=== PATIENT | female | born 1965 | race American Indian/Alaskan Native ===

== ENCOUNTER 2020-07-13 16:13 | Inpatient (IN) | payer MEDICAID, OTHER ==
--- NOTE | 2020-07-13 17:17 | EDM.PDOC ---
ED HPI GENERAL MEDICAL PROBLEM - General Chief Complaint: Diabetic Complaint Stated Complaint: sent from [facility] Time Seen by Provider: 07/13/20 17:17 Source of Information: Reports: Patient, EMS, Old Records, RN, RN Notes Reviewed History Limitations: Reports: No Limitations - History of Present Illness INITIAL COMMENTS - FREE TEXT/NARRATIVE: Pt sent from [facility] by ambulance with report of nausea, vomiting, diarrhea, vaginal yeast-like discharge, and sore mouth. In clinic pt was found to have a blood sugar in the 600's with no prior history of diabetes. Pt also reports having a cough for several days, but tested negative for COVID in clinic today. She denies fever, chills, or chest pain. Onset: Gradual Location: Reports: Generalized Severity: Severe Improves with: Reports: None Worsens with: Reports: None Associated Symptoms: Reports: No Other Symptoms Left Lower Back Pain Score (Numeric/FACES): 8 - Related Data Allergies Allergy/AdvReac Type Severity Reaction Status Date / Time No Known Allergies Allergy Verified 07/13/20 17:22 Home Meds: Home Meds Acetaminophen [Tylenol] 325 mg PO Q4H PRN 07/13/20 [History] Past Medical History - Past Health History Medical/Surgical History: Denies Medical/Surgical History Social & Family History - Family History Family Medical History: Noncontributory - Alcohol Use Alcohol Use History: No - Recreational Drug Use Recreational Drug Use: No - Living Situation & Occupation Living situation: Reports: with Family ED ROS GENERAL - Review of Systems Review Of Systems: Comprehensive ROS is negative, except as noted in HPI. ED EXAM GENERAL NO PERIP PULSE - Physical Exam Exam: See Below Exam Limited By: No Limitations General Appearance: Alert, No Apparent Distress, Other (Ill but non-toxic appearing) Eye Exam: Bilateral Eye: Normal Inspection Nose: Normal Inspection, Normal Mucosa, No Blood Throat/Mouth: Normal Lips, Normal Voice, No Airway Compromise, Other (Very dry oral mucosa. Dentures. White plaques consistent with oral candidiasis.) Head: Atraumatic, Normocephalic Neck: Normal Inspection, Supple, Non-Tender, Full Range of Motion Respiratory/Chest: No Respiratory Distress, Lungs Clear, Normal Breath Sounds, No Accessory Muscle Use, Chest Non-Tender, Other (Dry cough) Cardiovascular: Normal Peripheral Pulses, Regular Rate, Rhythm, No Edema GI/Abdominal: Normal Bowel Sounds, Soft, No Organomegaly, No Distention, Tender (Generalized). No: Guarding, Rigid, Rebound (Female) Exam: Deferred Rectal (Female) Exam: Deferred Back Exam: Full Range of Motion, CVA Tenderness (L), CVA Tenderness (R) Extremities: Normal Inspection, Normal Range of Motion, Non-Tender, Normal Capillary Refill, No Pedal Edema Neurological: Alert, Oriented, CN II-XII Intact, Normal Cognition, Normal Gait, No Motor/Sensory Deficits Psychiatric: Normal Affect, Normal Mood Skin Exam: Warm, Dry, Intact, Normal Color, No Rash EKG INTERPRETATION EKG Date: 07/13/20 Time: 17:27 Rhythm: Other (SR) Rate (Beats/Min): 87 Elton: LAD-Left Elton Deviation P-Wave: Present QRS: Other (LVH) ST-T: Normal QT: Prolonged (borderline) Comparison: NA - No Prior EKG Course - Vital Signs Last Recorded V/S: Last Vital Signs Temp 97.1 F 07/13/20 19:05 Pulse 88 07/13/20 19:05 Resp 16 07/13/20 19:05 BP 138/82 07/13/20 19:05 Pulse Ox 100 07/13/20 19:05 - Orders/Labs/Meds Orders: Active Orders 24 hr Category Date Time Status Admission Diagnosis [ADT] Stat ADT 07/13/20 18:38 Ordered Admission Status [Patient Status] [ADT] Routine ADT 07/13/20 18:38 Active Blood Glucose Check, Bedside [RC] Q4HR Care 07/13/20 17:18 Active EKG 12 Lead [EKG Documentation Completion] [RC] STAT Care 07/13/20 17:18 Active Peripheral IV Care [RC] . DIRECTED Care 07/13/20 17:19 Active CULTURE BLOOD [BC] Stat Lab 07/13/20 17:40 Received CULTURE BLOOD [BC] Stat Lab 07/13/20 18:05 Results CULTURE URINE [RM] Stat Lab 07/13/20 18:08 Received Sodium Chloride 0.9% [Saline Flush] Med 07/13/20 17:18 Active 10 ml FLUSH ASDIRECTED PRN Blood Culture x2 Reflex Set [OM.PC] Stat Oth 07/13/20 17:18 Ordered Peripheral IV Insertion Adult [OM.PC] Stat Oth 07/13/20 17:18 Ordered Medication Orders Acetaminophen (Tylenol) 650 mg PO Q4H PRN PRN Reason: Pain (Mild 1-3)/fever Dextrose/Water (Dextrose 50% In Water) 25 ml IVPUSH Q1H PRN PRN Reason: blood sugar <70 Docusate Sodium (Colace) 100 mg PO BID PRN PRN Reason: Constipation Fentanyl (Sublimaze) 25 mcg IVPUSH Q2H PRN PRN Reason: severe pain Fluconazole (Diflucan) 100 mg PO DAILY [facility] Heparin Sodium (Porcine) (Heparin Sodium) 5,000 units SUBCUT Q8HR [facility] Dextrose/Sodium Chloride (Dextrose 5%-Normal Saline) 1,000 mls @ 150 mls/hr IV ASDIRECTED [facility] Ceftriaxone Sodium 1 gm/ (Sodium Chloride) 50 mls @ 100 mls/hr IV Q24H [facility] Ibuprofen (Motrin) 400 mg PO Q6H PRN PRN Reason: mod pain Insulin Glargine (Lantus) 10 unit SUBCUT BEDTIME [facility] Last Admin: 07/13/20 19:46 Dose: 10 units Documented by: DICKSON Insulin Human Lispro (Humalog) 0 unit SUBCUT Q4H PRN; Protocol PRN Reason: per protocol Metoclopramide HCl (Reglan) 10 mg IVPUSH Q6H PRN PRN Reason: Nausea Potassium Chloride (Klor-Con 10) 40 meq PO Q6H [facility] Stop: 07/14/20 02:01 Sodium Chloride (Saline Flush) 10 ml FLUSH ASDIRECTED PRN PRN Reason: Keep Vein Open Zolpidem Tartrate (Ambien) 5 mg PO BEDTIME PRN PRN Reason: Sleep Labs: Laboratory Tests 07/13/20 07/13/20 07/13/20 Range/Units 17:19 17:40 17:40 WBC 8.4 (5.0-10.0) 10^3/uL RBC 5.19 (4.2-5.4) 10^6/uL Hgb 15.8 (12.0-16.0) g/dL Hct 44.2 (37.0-47.0) % MCV 85.2 (80-100) fL MCH 30.4 (27.0-34.0) pg MCHC 35.7 H (33.0-35.0) g/dL Plt Count 249 (150-450) 10^3/uL Neut % (Auto) 75.1 (42.2-75.2) % Lymph % (Auto) 19.1 L (20.5-50.1) % Bradley % (Auto) 5.0 (2-8) % Eos % (Auto) 0.6 L (1.0-3.0) % Baso % (Auto) 0.2 (0.0-1.0) % ABG pH 7.36 (7.35-7.45) ABG pCO2 26 L (35-45) mmHg ABG pO2 135 H (70-100) mmHg ABG HCO3 14.5 L (22-26) mmol/L ABG O2 Saturation 98 (95-100) % ABG Base Excess -9 L ((-2)-(+3)) mmol/L Leon Test Performed O2 Delivery Device Room air Sodium 131 L (136-145) mmol/L Potassium 3.1 L (3.5-5.1) mmol/L Chloride 96 L (98-107) mmol/L Carbon Dioxide 21 (21-32) mmol/L Anion Gap 17.1 H (7-13) mEq/L BUN 11 (7-18) mg/dL Creatinine 1.01 (0.55-1.02) mg/dL Est Cr Clr Drug Dosing 52.67 mL/min Estimated GFR (MDRD) 57 BUN/Creatinine Ratio 10.9 (No establ ref range) Glucose 539 H* (74-99) mg/dL POC Glucose (70-105) mg/dl Lactic Acid (0.4-2.0) mmol/L Calcium 8.3 L (8.5-10.1) mg/dL Total Bilirubin 0.3 (0.2-1.0) mg/dL AST 13 L (15-37) U/L ALT 22 (14-59) U/L Alkaline Phosphatase 138 H (46-116) U/L Troponin I < 0.017 (0.000-0.056) ng/mL Total Protein 6.4 (6.4-8.2) g/dL Albumin 2.9 L (3.4-5.0) g/dL Globulin 3.5 Albumin/Globulin Ratio 0.83 Amylase 28 (25-115) U/L Lipase 300 (73-393) U/L Urine Color (YELLOW) Urine Appearance (CLEAR) Urine pH (5.0-9.0) Ur Specific [place] (1.005-1.030) Urine Protein (NEGATIVE) Urine Glucose (UA) (NEGATIVE) Urine Ketones (NEGATIVE) Urine Occult Blood (NEGATIVE) Urine Nitrite (NEGATIVE) Urine Bilirubin (NEGATIVE) Urine Urobilinogen (0.2-1.0) mg/dL Ur Leukocyte Esterase (NEGATIVE) Urine RBC /HPF Urine WBC (0-5/HPF) /HPF Ur Epithelial Cells (NOT SEEN) /HPF Urine Bacteria (0-FEW/HPF) /HPF Urine Opiates Screen (NEGATIVE) Ur Oxycodone Screen (NEGATIVE) Urine Methadone Screen (NEGATIVE) Ur Barbiturates Screen (NEGATIVE) U Tricyclic Antidepress (NEGATIVE) Ur Phencyclidine Scrn (NEGATIVE) Ur Amphetamine Screen (NEGATIVE) U Methamphetamines Scrn (NEGATIVE) Urine MDMA Screen (NEGATIVE) U Benzodiazepines Scrn (NEGATIVE) Urine Cocaine Screen (NEGATIVE) U Marijuana (THC) Screen (NEGATIVE) Ethyl Alcohol < 3 (0) mg/dL Ketones Small-20 mg/dl 07/13/20 07/13/20 07/13/20 Range/Units 17:40 18:08 18:08 WBC (5.0-10.0) 10^3/uL RBC (4.2-5.4) 10^6/uL Hgb (12.0-16.0) g/dL Hct (37.0-47.0) % MCV (80-100) fL MCH (27.0-34.0) pg MCHC (33.0-35.0) g/dL Plt Count (150-450) 10^3/uL Neut % (Auto) (42.2-75.2) % Lymph % (Auto) (20.5-50.1) % Bradley % (Auto) (2-8) % Eos % (Auto) (1.0-3.0) % Baso % (Auto) (0.0-1.0) % ABG pH (7.35-7.45) ABG pCO2 (35-45) mmHg ABG pO2 (70-100) mmHg ABG HCO3 (22-26) mmol/L ABG O2 Saturation (95-100) % ABG Base Excess ((-2)-(+3)) mmol/L Leon Test O2 Delivery Device Sodium (136-145) mmol/L Potassium (3.5-5.1) mmol/L Chloride (98-107) mmol/L Carbon Dioxide (21-32) mmol/L Anion Gap (7-13) mEq/L BUN (7-18) mg/dL Creatinine (0.55-1.02) mg/dL Est Cr Clr Drug Dosing mL/min Estimated GFR (MDRD) BUN/Creatinine Ratio (No establ ref range) Glucose (74-99) mg/dL POC Glucose (70-105) mg/dl Lactic Acid 1.5 (0.4-2.0) mmol/L Calcium (8.5-10.1) mg/dL Total Bilirubin (0.2-1.0) mg/dL AST (15-37) U/L ALT (14-59) U/L Alkaline Phosphatase (46-116) U/L Troponin I (0.000-0.056) ng/mL Total Protein (6.4-8.2) g/dL Albumin (3.4-5.0) g/dL Globulin Albumin/Globulin Ratio Amylase (25-115) U/L Lipase (73-393) U/L Urine Color Yellow (YELLOW) Urine Appearance Slightly cloudy (CLEAR) Urine pH 7.0 (5.0-9.0) Ur Specific [place] 1.015 (1.005-1.030) Urine Protein Negative (NEGATIVE) Urine Glucose (UA) 500 H (NEGATIVE) Urine Ketones 40 H (NEGATIVE) Urine Occult Blood Trace-intact H (NEGATIVE) Urine Nitrite Negative (NEGATIVE) Urine Bilirubin Negative (NEGATIVE) Urine Urobilinogen 0.2 (0.2-1.0) mg/dL Ur Leukocyte Esterase Trace H (NEGATIVE) Urine RBC 0-5 /HPF Urine WBC Semi-packed H (0-5/HPF) /HPF Ur Epithelial Cells Moderate H (NOT SEEN) /HPF Urine Bacteria Many H (0-FEW/HPF) /HPF Urine Opiates Screen Negative (NEGATIVE) Ur Oxycodone Screen Negative (NEGATIVE) Urine Methadone Screen Negative (NEGATIVE) Ur Barbiturates Screen Negative (NEGATIVE) U Tricyclic Antidepress Negative (NEGATIVE) Ur Phencyclidine Scrn Negative (NEGATIVE) Ur Amphetamine Screen Negative (NEGATIVE) U Methamphetamines Scrn Positive H (NEGATIVE) Urine MDMA Screen Negative (NEGATIVE) U Benzodiazepines Scrn Negative (NEGATIVE) Urine Cocaine Screen Negative (NEGATIVE) U Marijuana (THC) Screen Negative (NEGATIVE) Ethyl Alcohol (0) mg/dL Ketones 07/13/20 Range/Units 19:05 WBC (5.0-10.0) 10^3/uL RBC (4.2-5.4) 10^6/uL Hgb (12.0-16.0) g/dL Hct (37.0-47.0) % MCV (80-100) fL MCH (27.0-34.0) pg MCHC (33.0-35.0) g/dL Plt Count (150-450) 10^3/uL Neut % (Auto) (42.2-75.2) % Lymph % (Auto) (20.5-50.1) % Bradley % (Auto) (2-8) % Eos % (Auto) (1.0-3.0) % Baso % (Auto) (0.0-1.0) % ABG pH (7.35-7.45) ABG pCO2 (35-45) mmHg ABG pO2 (70-100) mmHg ABG HCO3 (22-26) mmol/L ABG O2 Saturation (95-100) % ABG Base Excess ((-2)-(+3)) mmol/L Leon Test O2 Delivery Device Sodium (136-145) mmol/L Potassium (3.5-5.1) mmol/L Chloride (98-107) mmol/L Carbon Dioxide (21-32) mmol/L Anion Gap (7-13) mEq/L BUN (7-18) mg/dL Creatinine (0.55-1.02) mg/dL Est Cr Clr Drug Dosing mL/min Estimated GFR (MDRD) BUN/Creatinine Ratio (No establ ref range) Glucose (74-99) mg/dL POC Glucose 250 H (70-105) mg/dl Lactic Acid (0.4-2.0) mmol/L Calcium (8.5-10.1) mg/dL Total Bilirubin (0.2-1.0) mg/dL AST (15-37) U/L ALT (14-59) U/L Alkaline Phosphatase (46-116) U/L Troponin I (0.000-0.056) ng/mL Total Protein (6.4-8.2) g/dL Albumin (3.4-5.0) g/dL Globulin Albumin/Globulin Ratio Amylase (25-115) U/L Lipase (73-393) U/L Urine Color (YELLOW) Urine Appearance (CLEAR) Urine pH (5.0-9.0) Ur Specific [place] (1.005-1.030) Urine Protein (NEGATIVE) Urine Glucose (UA) (NEGATIVE) Urine Ketones (NEGATIVE) Urine Occult Blood (NEGATIVE) Urine Nitrite (NEGATIVE) Urine Bilirubin (NEGATIVE) Urine Urobilinogen (0.2-1.0) mg/dL Ur Leukocyte Esterase (NEGATIVE) Urine RBC /HPF Urine WBC (0-5/HPF) /HPF Ur Epithelial Cells (NOT SEEN) /HPF Urine Bacteria (0-FEW/HPF) /HPF Urine Opiates Screen (NEGATIVE) Ur Oxycodone Screen (NEGATIVE) Urine Methadone Screen (NEGATIVE) Ur Barbiturates Screen (NEGATIVE) U Tricyclic Antidepress (NEGATIVE) Ur Phencyclidine Scrn (NEGATIVE) Ur Amphetamine Screen (NEGATIVE) U Methamphetamines Scrn (NEGATIVE) Urine MDMA Screen (NEGATIVE) U Benzodiazepines Scrn (NEGATIVE) Urine Cocaine Screen (NEGATIVE) U Marijuana (THC) Screen (NEGATIVE) Ethyl Alcohol (0) mg/dL Ketones Meds: Medications Generic Name Dose Route Start Last Admin Trade Name Oleq PRN Reason Stop Dose Admin Acetaminophen 650 mg 07/13/20 19:26 Tylenol PO Q4H PRN Pain (Mild 1-3)/fever Dextrose/Water 25 ml 07/13/20 19:25 Dextrose 50% In Water IVPUSH Q1H PRN blood sugar <70 Docusate Sodium 100 mg 07/13/20 19:26 Colace PO BID PRN Constipation Fentanyl 25 mcg 07/13/20 19:40 Sublimaze IVPUSH Q2H PRN severe pain Fluconazole 100 mg 07/14/20 09:00 Diflucan PO DAILY [facility] Heparin Sodium (Porcine) 5,000 units 07/13/20 22:00 Heparin Sodium SUBCUT Q8HR [facility] Dextrose/Sodium Chloride 1,000 mls @ 150 mls/hr 07/13/20 19:30 Dextrose 5%-Normal Saline IV ASDIRECTED [facility] Ceftriaxone Sodium 1 gm/ 50 mls @ 100 mls/hr 07/13/20 20:00 Sodium Chloride IV Q24H JCARLOS Ibuprofen 400 mg 07/13/20 19:41 Motrin PO Q6H PRN mod pain Insulin Glargine 10 unit 07/13/20 21:00 07/13/20 19:46 Lantus SUBCUT 10 units BEDTIME JCARLOS Administration Insulin Human Lispro 0 unit 07/13/20 19:25 Humalog SUBCUT Q4H PRN per protocol Protocol Metoclopramide HCl 10 mg 07/13/20 19:31 Reglan IVPUSH Q6H PRN Nausea Potassium Chloride 40 meq 07/13/20 20:00 Klor-Con 10 PO 07/14/20 02:01 Q6H JCARLOS Sodium Chloride 10 ml 07/13/20 17:18 Saline Flush FLUSH ASDIRECTED PRN Keep Vein Open Zolpidem Tartrate 5 mg 07/13/20 19:26 Ambien PO BEDTIME PRN Sleep Discontinued Medications Generic Name Dose Route Start Last Admin Trade Name Freq PRN Reason Stop Dose Admin Sodium Chloride 1,000 mls @ 999 mls/hr 07/13/20 17:20 07/13/20 17:30 Normal Saline IV 07/13/20 18:20 999 mls/hr .BOLUS ONE Administration Insulin Human Regular 100 unit 100 mls @ 6.346 mls/hr 07/13/20 17:30 07/13/20 19:18 / Sodium Chloride IV 0 units/kg/hr TITRATE JCARLOS 0 mls/hr Titration Protocol 0.1 UNITS/KG/HR Potassium Chloride/Sodium Chloride 1,000 mls @ 250 mls/hr 07/13/20 18:45 Normal Saline With 40 Meq Kcl IV ASDIRECTED [facility] Insulin Human Regular 8 unit 07/13/20 17:20 07/13/20 17:32 Humulin R IV 07/13/20 17:21 8 units ONETIME ONE Administration Ondansetron HCl 4 mg 07/13/20 17:20 07/13/20 17:30 Zofran IV 07/13/20 17:21 4 mg ONETIME ONE Administration Ondansetron HCl 4 mg 07/13/20 19:26 Zofran Odt PO Q6H PRN nausea, able to take PO Ondansetron HCl 4 mg 07/13/20 19:26 Zofran IVPUSH Q4H PRN Nausea/Vomiting - Radiology Interpretation Free Text/Narrative:: [facility] Final Radiology Report Call: [phone] assistance Online chat: [email or web address] Name: MARILEE MEDRANO Age: 55Years F Date: 07/13/2020 SSN: -- : [id number] Study: CR CHEST 1V FRONTAL Requesting Physician: SHIRA WHYTE Images: 1 Addl Studies: Provided Clinical History: cough Contrast: Contrast Medium: Contrast Amount: Contrast Method: CONFIDENTIALITY STATEMENT This report is intended only for use by the referring physician, and only in accordance with law. If you received this in error, call [phone]. Page 1 of 1 PROCEDURE INFORMATION: Exam: XR Chest, 1 View Exam date and time: 07/13/2020 5:56 PM Age: 55 years old Clinical indication: Cough; Patient HX: Blood sugar>600, dka TECHNIQUE: Imaging protocol: XR of the chest Views: 1 view. COMPARISON: No relevant prior studies available. FINDINGS: Lungs: Unremarkable. No consolidation. Pleural space: Unremarkable. No pleural effusion. No pneumothorax. Heart/Mediastinum: Unremarkable. No cardiomegaly. Bones/joints: Unremarkable. IMPRESSION: No acute findings. Thank you for allowing us to participate in the care of your patient. Dictated and Authenticated by: Adria Prajapati MD 07/13/2020 6:03 PM Central Time ([place] & [place]) Departure - Departure Time of Disposition: 18:47 (admitted to Dr. Thornton) Disposition: Admitted As Inpatient 67 Condition: Fair, Serious Clinical Impression: New onset type 1 diabetes mellitus, uncontrolled, Oral candidiasis DKA (diabetic ketoacidoses) Qualifiers: Diabetes mellitus type: type 2 Diabetes mellitus complication detail: without coma Qualified Code(s): E11.10 - Type 2 diabetes mellitus with ketoacidosis without coma - Discharge Information *PRESCRIPTION DRUG MONITORING PROGRAM REVIEWED*: Not Applicable *COPY OF PRESCRIPTION DRUG MONITORING REPORT IN PATIENT [place]: Not Applicable Sepsis Event Note (ED) - Focused Exam Vital Signs: Vital Signs Temp Pulse Pulse Resp BP Pulse Ox 07/13/20 19:05 97.1 F 88 16 138/82 100 07/13/20 17:39 97.1 F 87 16 130/75 99 - My Orders Last 24 Hours: My Active Orders 07/13/20 17:18 Blood Glucose Check, Bedside [RC] Q4HR EKG 12 Lead [EKG Documentation Completion] [RC] STAT Sodium Chloride 0.9% [Saline Flush] 10 ml FLUSH ASDIRECTED PRN Blood Culture x2 Reflex Set [OM.PC] Stat Peripheral IV Insertion Adult [OM.PC] Stat 07/13/20 17:19 Peripheral IV Care [RC] . DIRECTED 07/13/20 17:40 CULTURE BLOOD [BC] Stat 07/13/20 18:05 CULTURE BLOOD [BC] Stat 07/13/20 18:08 CULTURE URINE [RM] Stat 07/13/20 18:38 Admission Diagnosis [ADT] Stat Admission Status [Patient Status] [ADT] Routine - Assessment/Plan Last 24 Hours: My Active Orders 07/13/20 17:18 Blood Glucose Check, Bedside [RC] Q4HR EKG 12 Lead [EKG Documentation Completion] [RC] STAT Sodium Chloride 0.9% [Saline Flush] 10 ml FLUSH ASDIRECTED PRN Blood Culture x2 Reflex Set [OM.PC] Stat Peripheral IV Insertion Adult [OM.PC] Stat 07/13/20 17:19 Peripheral IV Care [RC] . DIRECTED 07/13/20 17:40 CULTURE BLOOD [BC] Stat 07/13/20 18:05 CULTURE BLOOD [BC] Stat 07/13/20 18:08 CULTURE URINE [RM] Stat 07/13/20 18:38 Admission Diagnosis [ADT] Stat Admission Status [Patient Status] [ADT] Routine
[2020-07-13] MEDS ORDERED: Sodium Chloride 0.9% 1,000 ML IV ONE (17:20)
[2020-07-13] MEDS ORDERED: Ondansetron 4 MG/2 ML SDV IV ONE (17:20)
[2020-07-13] MEDS ORDERED: Insulin Regular, Human 100 Units/ML 3 ML Vial IV ONE (17:20)
[2020-07-13 17:22] LABS: BASE EXCESS ARTERIAL -9 mmol/L ((-2)-(+3)); BICARBONATE,ARTERIAL 14.5 mmol/L (22-26); O2 DELIVERY DEVICE ROOM AIR; O2 SATURATION ARTERIAL 98 % (95-100); PCO2 ARTERIAL 26 mmHg (35-45); PO2 ARTERIAL 135 mmHg (70-100)
[2020-07-13 17:23] LABS: ALLEN TEST PERFORMED
--- NOTE | 2020-07-13 18:03 | CR ---
PROCEDURE INFORMATION: Exam: XR Chest, 1 View Exam date and time: 07/13/2020 5:56 PM Age: 55 years old Clinical indication: Cough; Patient HX: Blood sugar>600, dka TECHNIQUE: Imaging protocol: XR of the chest Views: 1 view. COMPARISON: No relevant prior studies available. FINDINGS: Lungs: Unremarkable. No consolidation. Pleural space: Unremarkable. No pleural effusion. No pneumothorax. Heart/Mediastinum: Unremarkable. No cardiomegaly. Bones/joints: Unremarkable. IMPRESSION: No acute findings.
[2020-07-13 18:26] LABS: ANION GAP 17.1 mEq/L (7-13); CHLORIDE,CL 96 mmol/L (98-107); SODIUM,NA 131 mmol/L (136-145)
[2020-07-13] MEDS ORDERED: Sodium Chloride 0.9% with KCl 1,000 ML IV SCH (18:45)
[2020-07-13] MEDS ORDERED: 50% Dextrose in Water 50 ML Syringe IVPUSH PRN (19:25)
[2020-07-13] MEDS ORDERED: Ondansetron 4 MG Tab.DIS PO PRN (19:26)
[2020-07-13] MEDS ORDERED: Ondansetron 4 MG/2 ML SDV IVPUSH PRN (19:26)
[2020-07-13] MEDS ORDERED: Docusate Sodium 100 MG Cap PO PRN (19:26)
[2020-07-13] MEDS ORDERED: Metoclopramide 10 MG/2 ML SDV IVPUSH PRN (19:31)
[2020-07-13] MEDS: Insulin Glarg,Human.Rec.Analog 100 Unit/ML SUBCUT SCH ×2 (19:46→22:05)
--- NOTE | 2020-07-13 19:51 | PCM.HP ---
H&P History of Present Illness - General Date of Service: 07/13/20 Admit Problem/Dx: Admission Diagnosis/Problem Admission Diagnosis/Problem Diabetic ketoacidosis Source of Information: Patient - History of Present Illness Initial Comments - Free Text/Narative: 55-year-old with no significant chronic medical history. Had with nausea,back and abdominal pain, foul-smelling vaginal drainage, dry mouth. Has been drinking a lot and urinating frequently. Still always feeling thirsty. symptoms have been present for days. Worsening. weak when getting up, short of breath. Dry cough. No fever. denies alcohol use, drug use. Left Lower Back Pain Score (Numeric/FACES): 8 - Related Data Allergies/Adverse Reactions: Allergies Allergy/AdvReac Type Severity Reaction Status Date / Time No Known Allergies Allergy Verified 07/13/20 17:22 Home Medications: Home Meds Acetaminophen [Tylenol] 325 mg PO Q4H PRN 07/13/20 [History] Past Medical History - Past Health History Medical/Surgical History: Denies Medical/Surgical History Social & Family History - Family History Family Medical History: Noncontributory - Tobacco Use Smoking Status *Q: Current Every Day Smoker Years of Tobacco use: 8 Packs/Tins Daily: 0.5 - Caffeine Use Caffeine Use: Reports: None - Recreational Drug Use Recreational Drug Use: No - Living Situation & Occupation Living situation: Reports: with Family H&P Review of Systems - Review of Systems: Review Of Systems: See Below General: Reports: Malaise, Weakness Pulmonary: Reports: Shortness of Breath Cardiovascular: Denies: Chest Pain, Palpitations, Edema Gastrointestinal: Reports: Abdominal Pain, Nausea, Other (One-time loose stool). Denies: Black Stool Genitourinary: Reports: Dysuria Musculoskeletal: Reports: Back Pain Psychiatric: Denies: Confusion Neurological: Reports: Dizziness Exam - Exam Exam: See Below - Vital Signs Vital Signs: Last Vital Signs Temp 97.1 F 07/13/20 19:05 Pulse 88 07/13/20 19:05 Resp 16 07/13/20 19:05 BP 138/82 07/13/20 19:05 Pulse Ox 100 07/13/20 19:05 Weight: 139 lb 14.4 oz - Exam Quality Assessment: No: Supplemental Oxygen General: Alert, Oriented HEENT: Other (dry mouth) Neck: Supple Lungs: Clear to Auscultation, Normal Respiratory Effort Cardiovascular: Regular Rate, Regular Rhythm GI/Abdominal Exam: Normal Bowel Sounds, Soft, Non-Tender Extremities: No Pedal Edema - Patient Data Lab Results Last 24 hrs: Laboratory Results - last 24 hr 07/13/20 07/13/20 07/13/20 Range/Units 17:19 17:40 17:40 WBC 8.4 (5.0-10.0) 10^3/uL RBC 5.19 (4.2-5.4) 10^6/uL Hgb 15.8 (12.0-16.0) g/dL Hct 44.2 (37.0-47.0) % MCV 85.2 (80-100) fL MCH 30.4 (27.0-34.0) pg MCHC 35.7 H (33.0-35.0) g/dL Plt Count 249 (150-450) 10^3/uL Neut % (Auto) 75.1 (42.2-75.2) % Lymph % (Auto) 19.1 L (20.5-50.1) % Prentiss % (Auto) 5.0 (2-8) % Eos % (Auto) 0.6 L (1.0-3.0) % Baso % (Auto) 0.2 (0.0-1.0) % ABG pH 7.36 (7.35-7.45) ABG pCO2 26 L (35-45) mmHg ABG pO2 135 H (70-100) mmHg ABG HCO3 14.5 L (22-26) mmol/L ABG O2 Saturation 98 (95-100) % ABG Base Excess -9 L ((-2)-(+3)) mmol/L Leon Test Performed O2 Delivery Device Room air Sodium 131 L (136-145) mmol/L Potassium 3.1 L (3.5-5.1) mmol/L Chloride 96 L (98-107) mmol/L Carbon Dioxide 21 (21-32) mmol/L Anion Gap 17.1 H (7-13) mEq/L BUN 11 (7-18) mg/dL Creatinine 1.01 (0.55-1.02) mg/dL Est Cr Clr Drug Dosing 52.67 mL/min Estimated GFR (MDRD) 57 BUN/Creatinine Ratio 10.9 (No establ ref range) Glucose 539 H* (74-99) mg/dL POC Glucose (70-105) mg/dl Lactic Acid (0.4-2.0) mmol/L Calcium 8.3 L (8.5-10.1) mg/dL Total Bilirubin 0.3 (0.2-1.0) mg/dL AST 13 L (15-37) U/L ALT 22 (14-59) U/L Alkaline Phosphatase 138 H (46-116) U/L Troponin I < 0.017 (0.000-0.056) ng/mL Total Protein 6.4 (6.4-8.2) g/dL Albumin 2.9 L (3.4-5.0) g/dL Globulin 3.5 Albumin/Globulin Ratio 0.83 Amylase 28 (25-115) U/L Lipase 300 (73-393) U/L Urine Color (YELLOW) Urine Appearance (CLEAR) Urine pH (5.0-9.0) Ur Specific Turner (1.005-1.030) Urine Protein (NEGATIVE) Urine Glucose (UA) (NEGATIVE) Urine Ketones (NEGATIVE) Urine Occult Blood (NEGATIVE) Urine Nitrite (NEGATIVE) Urine Bilirubin (NEGATIVE) Urine Urobilinogen (0.2-1.0) mg/dL Ur Leukocyte Esterase (NEGATIVE) Urine RBC /HPF Urine WBC (0-5/HPF) /HPF Ur Epithelial Cells (NOT SEEN) /HPF Urine Bacteria (0-FEW/HPF) /HPF Urine Opiates Screen (NEGATIVE) Ur Oxycodone Screen (NEGATIVE) Urine Methadone Screen (NEGATIVE) Ur Barbiturates Screen (NEGATIVE) U Tricyclic Antidepress (NEGATIVE) Ur Phencyclidine Scrn (NEGATIVE) Ur Amphetamine Screen (NEGATIVE) U Methamphetamines Scrn (NEGATIVE) Urine MDMA Screen (NEGATIVE) U Benzodiazepines Scrn (NEGATIVE) Urine Cocaine Screen (NEGATIVE) U Marijuana (THC) Screen (NEGATIVE) Ethyl Alcohol < 3 (0) mg/dL Ketones Small-20 mg/dl 07/13/20 07/13/20 07/13/20 Range/Units 17:40 18:08 18:08 WBC (5.0-10.0) 10^3/uL RBC (4.2-5.4) 10^6/uL Hgb (12.0-16.0) g/dL Hct (37.0-47.0) % MCV (80-100) fL MCH (27.0-34.0) pg MCHC (33.0-35.0) g/dL Plt Count (150-450) 10^3/uL Neut % (Auto) (42.2-75.2) % Lymph % (Auto) (20.5-50.1) % Prentiss % (Auto) (2-8) % Eos % (Auto) (1.0-3.0) % Baso % (Auto) (0.0-1.0) % ABG pH (7.35-7.45) ABG pCO2 (35-45) mmHg ABG pO2 (70-100) mmHg ABG HCO3 (22-26) mmol/L ABG O2 Saturation (95-100) % ABG Base Excess ((-2)-(+3)) mmol/L Leon Test O2 Delivery Device Sodium (136-145) mmol/L Potassium (3.5-5.1) mmol/L Chloride (98-107) mmol/L Carbon Dioxide (21-32) mmol/L Anion Gap (7-13) mEq/L BUN (7-18) mg/dL Creatinine (0.55-1.02) mg/dL Est Cr Clr Drug Dosing mL/min Estimated GFR (MDRD) BUN/Creatinine Ratio (No establ ref range) Glucose (74-99) mg/dL POC Glucose (70-105) mg/dl Lactic Acid 1.5 (0.4-2.0) mmol/L Calcium (8.5-10.1) mg/dL Total Bilirubin (0.2-1.0) mg/dL AST (15-37) U/L ALT (14-59) U/L Alkaline Phosphatase (46-116) U/L Troponin I (0.000-0.056) ng/mL Total Protein (6.4-8.2) g/dL Albumin (3.4-5.0) g/dL Globulin Albumin/Globulin Ratio Amylase (25-115) U/L Lipase (73-393) U/L Urine Color Yellow (YELLOW) Urine Appearance Slightly cloudy (CLEAR) Urine pH 7.0 (5.0-9.0) Ur Specific Turner 1.015 (1.005-1.030) Urine Protein Negative (NEGATIVE) Urine Glucose (UA) 500 H (NEGATIVE) Urine Ketones 40 H (NEGATIVE) Urine Occult Blood Trace-intact H (NEGATIVE) Urine Nitrite Negative (NEGATIVE) Urine Bilirubin Negative (NEGATIVE) Urine Urobilinogen 0.2 (0.2-1.0) mg/dL Ur Leukocyte Esterase Trace H (NEGATIVE) Urine RBC 0-5 /HPF Urine WBC Semi-packed H (0-5/HPF) /HPF Ur Epithelial Cells Moderate H (NOT SEEN) /HPF Urine Bacteria Many H (0-FEW/HPF) /HPF Urine Opiates Screen Negative (NEGATIVE) Ur Oxycodone Screen Negative (NEGATIVE) Urine Methadone Screen Negative (NEGATIVE) Ur Barbiturates Screen Negative (NEGATIVE) U Tricyclic Antidepress Negative (NEGATIVE) Ur Phencyclidine Scrn Negative (NEGATIVE) Ur Amphetamine Screen Negative (NEGATIVE) U Methamphetamines Scrn Positive H (NEGATIVE) Urine MDMA Screen Negative (NEGATIVE) U Benzodiazepines Scrn Negative (NEGATIVE) Urine Cocaine Screen Negative (NEGATIVE) U Marijuana (THC) Screen Negative (NEGATIVE) Ethyl Alcohol (0) mg/dL Ketones 07/13/20 Range/Units 19:05 WBC (5.0-10.0) 10^3/uL RBC (4.2-5.4) 10^6/uL Hgb (12.0-16.0) g/dL Hct (37.0-47.0) % MCV (80-100) fL MCH (27.0-34.0) pg MCHC (33.0-35.0) g/dL Plt Count (150-450) 10^3/uL Neut % (Auto) (42.2-75.2) % Lymph % (Auto) (20.5-50.1) % Prentiss % (Auto) (2-8) % Eos % (Auto) (1.0-3.0) % Baso % (Auto) (0.0-1.0) % ABG pH (7.35-7.45) ABG pCO2 (35-45) mmHg ABG pO2 (70-100) mmHg ABG HCO3 (22-26) mmol/L ABG O2 Saturation (95-100) % ABG Base Excess ((-2)-(+3)) mmol/L Leon Test O2 Delivery Device Sodium (136-145) mmol/L Potassium (3.5-5.1) mmol/L Chloride (98-107) mmol/L Carbon Dioxide (21-32) mmol/L Anion Gap (7-13) mEq/L BUN (7-18) mg/dL Creatinine (0.55-1.02) mg/dL Est Cr Clr Drug Dosing mL/min Estimated GFR (MDRD) BUN/Creatinine Ratio (No establ ref range) Glucose (74-99) mg/dL POC Glucose 250 H (70-105) mg/dl Lactic Acid (0.4-2.0) mmol/L Calcium (8.5-10.1) mg/dL Total Bilirubin (0.2-1.0) mg/dL AST (15-37) U/L ALT (14-59) U/L Alkaline Phosphatase (46-116) U/L Troponin I (0.000-0.056) ng/mL Total Protein (6.4-8.2) g/dL Albumin (3.4-5.0) g/dL Globulin Albumin/Globulin Ratio Amylase (25-115) U/L Lipase (73-393) U/L Urine Color (YELLOW) Urine Appearance (CLEAR) Urine pH (5.0-9.0) Ur Specific Turner (1.005-1.030) Urine Protein (NEGATIVE) Urine Glucose (UA) (NEGATIVE) Urine Ketones (NEGATIVE) Urine Occult Blood (NEGATIVE) Urine Nitrite (NEGATIVE) Urine Bilirubin (NEGATIVE) Urine Urobilinogen (0.2-1.0) mg/dL Ur Leukocyte Esterase (NEGATIVE) Urine RBC /HPF Urine WBC (0-5/HPF) /HPF Ur Epithelial Cells (NOT SEEN) /HPF Urine Bacteria (0-FEW/HPF) /HPF Urine Opiates Screen (NEGATIVE) Ur Oxycodone Screen (NEGATIVE) Urine Methadone Screen (NEGATIVE) Ur Barbiturates Screen (NEGATIVE) U Tricyclic Antidepress (NEGATIVE) Ur Phencyclidine Scrn (NEGATIVE) Ur Amphetamine Screen (NEGATIVE) U Methamphetamines Scrn (NEGATIVE) Urine MDMA Screen (NEGATIVE) U Benzodiazepines Scrn (NEGATIVE) Urine Cocaine Screen (NEGATIVE) U Marijuana (THC) Screen (NEGATIVE) Ethyl Alcohol (0) mg/dL Ketones Result Diagrams: 07/13/20 17:40 07/13/20 17:40 Rodolfo Results Last 24 hrs: Microbiology 07/13/20 18:05 Anaerobic Blood Culture - Final Blood - Venous - Lab Draw - Problem List (1) Vaginal candidiasis SNOMED Code(s): 19116748 ICD Code: B37.3 - CANDIDIASIS OF VULVA AND VAGINA Status: Acute Current Visit: Yes (2) Hypokalemia SNOMED Code(s): 63672251 ICD Code: E87.6 - HYPOKALEMIA Status: Acute Current Visit: Yes (3) Amphetamine user SNOMED Code(s): 728629600 ICD Code: F15.10 - OTHER STIMULANT ABUSE, UNCOMPLICATED Status: Acute Current Visit: Yes (4) UTI (urinary tract infection) SNOMED Code(s): 39994590 ICD Code: N39.0 - URINARY TRACT INFECTION, SITE NOT SPECIFIED Status: Acute Current Visit: Yes (5) DKA (diabetic ketoacidoses) SNOMED Code(s): 391312682, 297892407 ICD Code: E11.10 - TYPE 2 DIABETES MELLITUS WITH KETOACIDOSIS WITHOUT COMA Status: Acute Current Visit: No Qualifiers: Diabetes mellitus type: type 2 Diabetes mellitus complication detail: without coma Qualified Code(s): E11.10 - Type 2 diabetes mellitus with ketoacidosis without coma (6) New onset type 1 diabetes mellitus, uncontrolled SNOMED Code(s): 502227976 ICD Code: E10.65 - TYPE 1 DIABETES MELLITUS WITH HYPERGLYCEMIA Status: Acute Current Visit: No Problem List Initiated/Reviewed/Updated: Yes Orders Last 24hrs: Active Orders 24 hr Category Date Time Status Admission Diagnosis [ADT] Stat ADT 07/13/20 18:38 Ordered Admission Status [Patient Status] [ADT] Routine ADT 07/13/20 18:38 Active Antiembolic Devices [RC] PER UNIT ROUTINE Care 07/13/20 19:28 Ordered Blood Glucose Check, Bedside [RC] Q4HR Care 07/13/20 17:18 Active EKG 12 Lead [EKG Documentation Completion] [RC] STAT Care 07/13/20 17:18 Active Oxygen Therapy [RC] PRN Care 07/13/20 19:26 Ordered Peripheral IV Care [RC] . DIRECTED Care 07/13/20 17:19 Active Up With Assistance [RC] ASDIRECTED Care 07/13/20 19:26 Ordered VTE/DVT Education [RC] PER UNIT ROUTINE Care 07/13/20 19:26 Ordered Vital Signs [RC] Q4H Care 07/13/20 19:26 Ordered Consistent Carbohydrate Diet [DIET] Diet 07/13/20 Breakfast Ordered BASIC METABOLIC PANEL,BMP [CHEM] AM Lab 07/14/20 05:11 Ordered CBC WITH AUTO DIFF [HEME] AM Lab 07/14/20 05:11 Ordered CULTURE BLOOD [BC] Stat Lab 07/13/20 17:40 Received CULTURE BLOOD [BC] Stat Lab 07/13/20 18:05 Results CULTURE URINE [RM] Stat Lab 07/13/20 18:08 Received MAGNESIUM [CHEM] AM Lab 07/14/20 05:11 Ordered PHOSPHORUS [CHEM] AM Lab 07/14/20 05:11 Ordered Acetaminophen [TylenoL] Med 07/13/20 19:26 Ordered 650 mg PO Q4H PRN Dextrose 5%-Normal Saline @ 150 MLS/HR(1000ml) Med 07/13/20 19:30 Ordered Dextrose 5%-0.9% NaCl [Dextrose 5%-Normal Saline] 1,000 ml IV ASDIRECTED Dextrose 50% in Water Med 07/13/20 19:25 Ordered 25 ml IVPUSH Q1H PRN Docusate Sodium [Colace] Med 07/13/20 19:26 Ordered 100 mg PO BID PRN Fluconazole [Diflucan] Med 07/14/20 09:00 Ordered 100 mg PO DAILY Heparin Sodium Med 07/13/20 22:00 Ordered 5,000 units SUBCUT Q8HR Ibuprofen [Motrin] Med 07/13/20 19:41 Ordered 400 mg PO Q6H PRN Insulin Glarg,Human.Rec.Analog [LantUS] Med 07/13/20 21:00 Ordered 10 unit SUBCUT BEDTIME Insulin Lispro [HumaLOG] Med 07/13/20 19:25 Ordered See Protocol SUBCUT Q4H PRN Metoclopramide [Reglan] Med 07/13/20 19:31 Ordered 10 mg IVPUSH Q6H PRN Potassium Chloride [Klor-Con 10] Med 07/13/20 19:45 Ordered 40 meq PO Q6H Sodium Chloride 0.9% [Saline Flush] Med 07/13/20 17:18 Active 10 ml FLUSH ASDIRECTED PRN Zolpidem [Ambien] Med 07/13/20 19:26 Ordered 5 mg PO BEDTIME PRN cefTRIAXone [Rocephin] 1 gm Med 07/13/20 19:45 Ordered Sodium Chloride 0.9% [Normal Saline] 50 ml IV Q24H fentaNYL [Sublimaze] Med 07/13/20 19:40 Ordered 25 mcg IVPUSH Q2H PRN Antiembolic Hose [OM.PC] Per Unit Routine Oth 07/13/20 19:27 Ordered Blood Culture x2 Reflex Set [OM.PC] Stat Oth 07/13/20 17:18 Ordered Peripheral IV Insertion Adult [OM.PC] Stat Oth 07/13/20 17:18 Ordered Resuscitation Status Routine Resus Stat 07/13/20 19:26 Ordered Medication Orders Acetaminophen (Tylenol) 650 mg PO Q4H PRN PRN Reason: Pain (Mild 1-3)/fever Dextrose/Water (Dextrose 50% In Water) 25 ml IVPUSH Q1H PRN PRN Reason: blood sugar <70 Docusate Sodium (Colace) 100 mg PO BID PRN PRN Reason: Constipation Fentanyl (Sublimaze) 25 mcg IVPUSH Q2H PRN PRN Reason: severe pain Fluconazole (Diflucan) 100 mg PO DAILY [facility] Heparin Sodium (Porcine) (Heparin Sodium) 5,000 units SUBCUT Q8HR [facility] Dextrose/Sodium Chloride (Dextrose 5%-Normal Saline) 1,000 mls @ 150 mls/hr IV ASDIRECTED [facility] Ceftriaxone Sodium 1 gm/ (Sodium Chloride) 50 mls @ 100 mls/hr IV Q24H [facility] Ibuprofen (Motrin) 400 mg PO Q6H PRN PRN Reason: mod pain Insulin Glargine (Lantus) 10 unit SUBCUT BEDTIME [facility] Insulin Human Lispro (Humalog) 0 unit SUBCUT Q4H PRN; Protocol PRN Reason: per protocol Metoclopramide HCl (Reglan) 10 mg IVPUSH Q6H PRN PRN Reason: Nausea Potassium Chloride (Klor-Con 10) 40 meq PO Q6H [facility] Stop: 07/14/20 01:46 Sodium Chloride (Saline Flush) 10 ml FLUSH ASDIRECTED PRN PRN Reason: Keep Vein Open Zolpidem Tartrate (Ambien) 5 mg PO BEDTIME PRN PRN Reason: Sleep Assessment/Plan Comment:: 55-year-old presented with polydipsia, polyuria, weakness. Diagnosis type 1 diabetes We will start the patient on Lantus Supplemental insulin as needed DKA Hydrate well Follow electrolytes Replace hypokalemia treated with insulin drip, will stop that nowsince blood sugar significantly bisi pped change IV fluid to D5 Give Lantus and supplemental insulin pseudohyponatremia with high blood sugars Will hydrate well Recheck in the morning UTI Check blood culture Check urine culture Treat empirically with ceftriaxone likely amphetamine use based on urine drug screen Patient denies DVT prophylaxis with subcutaneous heparin
[2020-07-13] MEDS: Potassium Chloride 10 MEQ Tab.ER PO SCH (20:40)
[2020-07-13] MEDS: Dextrose 5%-0.9% NaCl 1,000 ML IV SCH (20:42)
[2020-07-13] MEDS: cefTRIAXone 1 GM in Sodium Chloride 0.9% 50 ML IV SCH (20:43)
[2020-07-13] MEDS: Zolpidem 5 MG Tab PO PRN (21:12)
[2020-07-13] MEDS: Heparin Sodium 5,000 Units/ML Vial SUBCUT SCH (21:12)
[2020-07-14] MEDS: Potassium Chloride 10 MEQ Tab.ER PO SCH ×2 (01:44→03:47)
[2020-07-14] MEDS: Dextrose 5%-0.9% NaCl 1,000 ML IV SCH (04:02)
[2020-07-14] MEDS: Insulin Lispro 100 Units/ML 3 ML Vial SUBCUT PRN ×6 (04:45→17:34)
[2020-07-14] MEDS: Heparin Sodium 5,000 Units/ML Vial SUBCUT SCH ×4 (04:48→21:43)
[2020-07-14 06:27] LABS: ANION GAP 14.7 mEq/L (7-13); CHLORIDE,CL 107 mmol/L (98-107); SODIUM,NA 139 mmol/L (136-145)
[2020-07-14] MEDS: Fluconazole 100 MG Tab PO SCH (08:34)
[2020-07-14] MEDS: Ibuprofen 400 MG Tab PO PRN ×3 (08:34→21:31)
[2020-07-14] MEDS ORDERED: Insulin Isophane NPH, Human 100 Units/ML 3 ML Vial SQ ONE (11:58)
--- NOTE | 2020-07-14 12:07 | PCM.PN ---
- General Info Date of Service: 07/14/20 Admission Dx/Problem (Free Text): Admission Diagnosis/Problem Admission Diagnosis/Problem Diabetic ketoacidosis Subjective Update: Feeling better. Continue to have high blood sugars during the night. No hypoglycemia. Has lower abdominal, suprapubic pain. Associated with chronic back pain. Worse with movements. No fever or chills Functional Status: Reports: Tolerating Diet - Review of Systems General: Denies: Fever Pulmonary: Denies: Shortness of Breath Cardiovascular: Denies: Chest Pain, Edema Neurological: Denies: Confusion - Patient Data Vitals - Most Recent: Last Vital Signs Temp 97.6 F 07/14/20 08:00 Pulse 71 07/14/20 08:00 Resp 18 07/14/20 08:00 BP 106/46 L 07/14/20 08:00 Pulse Ox 98 07/14/20 08:00 Weight - Most Recent: 139 lb 14.4 oz I&O - Last 24 Hours: Intake & Output 07/13/20 07/14/20 07/14/20 22:59 06:59 14:59 Intake Total 240 360 Balance 240 360 Lab Results Last 24 Hours: Laboratory Results - last 24 hr 07/13/20 07/13/20 07/13/20 Range/Units 17:14 17:19 17:40 WBC 8.4 (5.0-10.0) 10^3/uL RBC 5.19 (4.2-5.4) 10^6/uL Hgb 15.8 (12.0-16.0) g/dL Hct 44.2 (37.0-47.0) % MCV 85.2 (80-100) fL MCH 30.4 (27.0-34.0) pg MCHC 35.7 H (33.0-35.0) g/dL Plt Count 249 (150-450) 10^3/uL Neut % (Auto) 75.1 (42.2-75.2) % Lymph % (Auto) 19.1 L (20.5-50.1) % Harper % (Auto) 5.0 (2-8) % Eos % (Auto) 0.6 L (1.0-3.0) % Baso % (Auto) 0.2 (0.0-1.0) % ABG pH 7.36 (7.35-7.45) ABG pCO2 26 L (35-45) mmHg ABG pO2 135 H (70-100) mmHg ABG HCO3 14.5 L (22-26) mmol/L ABG O2 Saturation 98 (95-100) % ABG Base Excess -9 L ((-2)-(+3)) mmol/L Leon Test Performed O2 Delivery Device Room air Sodium (136-145) mmol/L Potassium (3.5-5.1) mmol/L Chloride (98-107) mmol/L Carbon Dioxide (21-32) mmol/L Anion Gap (7-13) mEq/L BUN (7-18) mg/dL Creatinine (0.55-1.02) mg/dL Est Cr Clr Drug Dosing mL/min Estimated GFR (MDRD) BUN/Creatinine Ratio (No establ ref range) Glucose (74-99) mg/dL POC Glucose > 500 H* (70-105) mg/dl Lactic Acid (0.4-2.0) mmol/L Calcium (8.5-10.1) mg/dL Phosphorus (2.6-4.7) mg/dL Magnesium (1.8-2.4) mg/dL Total Bilirubin (0.2-1.0) mg/dL AST (15-37) U/L ALT (14-59) U/L Alkaline Phosphatase (46-116) U/L Troponin I (0.000-0.056) ng/mL Total Protein (6.4-8.2) g/dL Albumin (3.4-5.0) g/dL Globulin Albumin/Globulin Ratio Amylase (25-115) U/L Lipase (73-393) U/L Urine Color (YELLOW) Urine Appearance (CLEAR) Urine pH (5.0-9.0) Ur Specific Ward (1.005-1.030) Urine Protein (NEGATIVE) Urine Glucose (UA) (NEGATIVE) Urine Ketones (NEGATIVE) Urine Occult Blood (NEGATIVE) Urine Nitrite (NEGATIVE) Urine Bilirubin (NEGATIVE) Urine Urobilinogen (0.2-1.0) mg/dL Ur Leukocyte Esterase (NEGATIVE) Urine RBC /HPF Urine WBC (0-5/HPF) /HPF Ur Epithelial Cells (NOT SEEN) /HPF Urine Bacteria (0-FEW/HPF) /HPF Urine Opiates Screen (NEGATIVE) Ur Oxycodone Screen (NEGATIVE) Urine Methadone Screen (NEGATIVE) Ur Barbiturates Screen (NEGATIVE) U Tricyclic Antidepress (NEGATIVE) Ur Phencyclidine Scrn (NEGATIVE) Ur Amphetamine Screen (NEGATIVE) U Methamphetamines Scrn (NEGATIVE) Urine MDMA Screen (NEGATIVE) U Benzodiazepines Scrn (NEGATIVE) Urine Cocaine Screen (NEGATIVE) U Marijuana (THC) Screen (NEGATIVE) Ethyl Alcohol (0) mg/dL Ketones 07/13/20 07/13/20 07/13/20 Range/Units 17:40 17:40 18:08 WBC (5.0-10.0) 10^3/uL RBC (4.2-5.4) 10^6/uL Hgb (12.0-16.0) g/dL Hct (37.0-47.0) % MCV (80-100) fL MCH (27.0-34.0) pg MCHC (33.0-35.0) g/dL Plt Count (150-450) 10^3/uL Neut % (Auto) (42.2-75.2) % Lymph % (Auto) (20.5-50.1) % Harper % (Auto) (2-8) % Eos % (Auto) (1.0-3.0) % Baso % (Auto) (0.0-1.0) % ABG pH (7.35-7.45) ABG pCO2 (35-45) mmHg ABG pO2 (70-100) mmHg ABG HCO3 (22-26) mmol/L ABG O2 Saturation (95-100) % ABG Base Excess ((-2)-(+3)) mmol/L Leon Test O2 Delivery Device Sodium 131 L (136-145) mmol/L Potassium 3.1 L (3.5-5.1) mmol/L Chloride 96 L (98-107) mmol/L Carbon Dioxide 21 (21-32) mmol/L Anion Gap 17.1 H (7-13) mEq/L BUN 11 (7-18) mg/dL Creatinine 1.01 (0.55-1.02) mg/dL Est Cr Clr Drug Dosing 52.67 mL/min Estimated GFR (MDRD) 57 BUN/Creatinine Ratio 10.9 (No establ ref range) Glucose 539 H* (74-99) mg/dL POC Glucose (70-105) mg/dl Lactic Acid 1.5 (0.4-2.0) mmol/L Calcium 8.3 L (8.5-10.1) mg/dL Phosphorus (2.6-4.7) mg/dL Magnesium (1.8-2.4) mg/dL Total Bilirubin 0.3 (0.2-1.0) mg/dL AST 13 L (15-37) U/L ALT 22 (14-59) U/L Alkaline Phosphatase 138 H (46-116) U/L Troponin I < 0.017 (0.000-0.056) ng/mL Total Protein 6.4 (6.4-8.2) g/dL Albumin 2.9 L (3.4-5.0) g/dL Globulin 3.5 Albumin/Globulin Ratio 0.83 Amylase 28 (25-115) U/L Lipase 300 (73-393) U/L Urine Color Yellow (YELLOW) Urine Appearance Slightly cloudy (CLEAR) Urine pH 7.0 (5.0-9.0) Ur Specific Ward 1.015 (1.005-1.030) Urine Protein Negative (NEGATIVE) Urine Glucose (UA) 500 H (NEGATIVE) Urine Ketones 40 H (NEGATIVE) Urine Occult Blood Trace-intact H (NEGATIVE) Urine Nitrite Negative (NEGATIVE) Urine Bilirubin Negative (NEGATIVE) Urine Urobilinogen 0.2 (0.2-1.0) mg/dL Ur Leukocyte Esterase Trace H (NEGATIVE) Urine RBC 0-5 /HPF Urine WBC Semi-packed H (0-5/HPF) /HPF Ur Epithelial Cells Moderate H (NOT SEEN) /HPF Urine Bacteria Many H (0-FEW/HPF) /HPF Urine Opiates Screen (NEGATIVE) Ur Oxycodone Screen (NEGATIVE) Urine Methadone Screen (NEGATIVE) Ur Barbiturates Screen (NEGATIVE) U Tricyclic Antidepress (NEGATIVE) Ur Phencyclidine Scrn (NEGATIVE) Ur Amphetamine Screen (NEGATIVE) U Methamphetamines Scrn (NEGATIVE) Urine MDMA Screen (NEGATIVE) U Benzodiazepines Scrn (NEGATIVE) Urine Cocaine Screen (NEGATIVE) U Marijuana (THC) Screen (NEGATIVE) Ethyl Alcohol < 3 (0) mg/dL Ketones Small-20 mg/dl 07/13/20 07/13/20 07/13/20 Range/Units 18:08 19:05 20:40 WBC (5.0-10.0) 10^3/uL RBC (4.2-5.4) 10^6/uL Hgb (12.0-16.0) g/dL Hct (37.0-47.0) % MCV (80-100) fL MCH (27.0-34.0) pg MCHC (33.0-35.0) g/dL Plt Count (150-450) 10^3/uL Neut % (Auto) (42.2-75.2) % Lymph % (Auto) (20.5-50.1) % Harper % (Auto) (2-8) % Eos % (Auto) (1.0-3.0) % Baso % (Auto) (0.0-1.0) % ABG pH (7.35-7.45) ABG pCO2 (35-45) mmHg ABG pO2 (70-100) mmHg ABG HCO3 (22-26) mmol/L ABG O2 Saturation (95-100) % ABG Base Excess ((-2)-(+3)) mmol/L Leon Test O2 Delivery Device Sodium (136-145) mmol/L Potassium (3.5-5.1) mmol/L Chloride (98-107) mmol/L Carbon Dioxide (21-32) mmol/L Anion Gap (7-13) mEq/L BUN (7-18) mg/dL Creatinine (0.55-1.02) mg/dL Est Cr Clr Drug Dosing mL/min Estimated GFR (MDRD) BUN/Creatinine Ratio (No establ ref range) Glucose (74-99) mg/dL POC Glucose 250 H 166 H (70-105) mg/dl Lactic Acid (0.4-2.0) mmol/L Calcium (8.5-10.1) mg/dL Phosphorus (2.6-4.7) mg/dL Magnesium (1.8-2.4) mg/dL Total Bilirubin (0.2-1.0) mg/dL AST (15-37) U/L ALT (14-59) U/L Alkaline Phosphatase (46-116) U/L Troponin I (0.000-0.056) ng/mL Total Protein (6.4-8.2) g/dL Albumin (3.4-5.0) g/dL Globulin Albumin/Globulin Ratio Amylase (25-115) U/L Lipase (73-393) U/L Urine Color (YELLOW) Urine Appearance (CLEAR) Urine pH (5.0-9.0) Ur Specific Ward (1.005-1.030) Urine Protein (NEGATIVE) Urine Glucose (UA) (NEGATIVE) Urine Ketones (NEGATIVE) Urine Occult Blood (NEGATIVE) Urine Nitrite (NEGATIVE) Urine Bilirubin (NEGATIVE) Urine Urobilinogen (0.2-1.0) mg/dL Ur Leukocyte Esterase (NEGATIVE) Urine RBC /HPF Urine WBC (0-5/HPF) /HPF Ur Epithelial Cells (NOT SEEN) /HPF Urine Bacteria (0-FEW/HPF) /HPF Urine Opiates Screen Negative (NEGATIVE) Ur Oxycodone Screen Negative (NEGATIVE) Urine Methadone Screen Negative (NEGATIVE) Ur Barbiturates Screen Negative (NEGATIVE) U Tricyclic Antidepress Negative (NEGATIVE) Ur Phencyclidine Scrn Negative (NEGATIVE) Ur Amphetamine Screen Negative (NEGATIVE) U Methamphetamines Scrn Positive H (NEGATIVE) Urine MDMA Screen Negative (NEGATIVE) U Benzodiazepines Scrn Negative (NEGATIVE) Urine Cocaine Screen Negative (NEGATIVE) U Marijuana (THC) Screen Negative (NEGATIVE) Ethyl Alcohol (0) mg/dL Ketones 07/14/20 07/14/20 07/14/20 Range/Units 01:15 04:23 05:20 WBC 6.4 (5.0-10.0) 10^3/uL RBC 3.91 L (4.2-5.4) 10^6/uL Hgb 12.1 D (12.0-16.0) g/dL Hct 33.7 L (37.0-47.0) % MCV 86.2 (80-100) fL MCH 30.9 (27.0-34.0) pg MCHC 35.9 H (33.0-35.0) g/dL Plt Count 231 (150-450) 10^3/uL Neut % (Auto) 56.4 (42.2-75.2) % Lymph % (Auto) 36.1 (20.5-50.1) % Harper % (Auto) 6.1 (2-8) % Eos % (Auto) 1.1 (1.0-3.0) % Baso % (Auto) 0.3 (0.0-1.0) % ABG pH (7.35-7.45) ABG pCO2 (35-45) mmHg ABG pO2 (70-100) mmHg ABG HCO3 (22-26) mmol/L ABG O2 Saturation (95-100) % ABG Base Excess ((-2)-(+3)) mmol/L Leon Test O2 Delivery Device Sodium (136-145) mmol/L Potassium (3.5-5.1) mmol/L Chloride (98-107) mmol/L Carbon Dioxide (21-32) mmol/L Anion Gap (7-13) mEq/L BUN (7-18) mg/dL Creatinine (0.55-1.02) mg/dL Est Cr Clr Drug Dosing mL/min Estimated GFR (MDRD) BUN/Creatinine Ratio (No establ ref range) Glucose (74-99) mg/dL POC Glucose 403 H* 417 H* (70-105) mg/dl Lactic Acid (0.4-2.0) mmol/L Calcium (8.5-10.1) mg/dL Phosphorus (2.6-4.7) mg/dL Magnesium (1.8-2.4) mg/dL Total Bilirubin (0.2-1.0) mg/dL AST (15-37) U/L ALT (14-59) U/L Alkaline Phosphatase (46-116) U/L Troponin I (0.000-0.056) ng/mL Total Protein (6.4-8.2) g/dL Albumin (3.4-5.0) g/dL Globulin Albumin/Globulin Ratio Amylase (25-115) U/L Lipase (73-393) U/L Urine Color (YELLOW) Urine Appearance (CLEAR) Urine pH (5.0-9.0) Ur Specific Ward (1.005-1.030) Urine Protein (NEGATIVE) Urine Glucose (UA) (NEGATIVE) Urine Ketones (NEGATIVE) Urine Occult Blood (NEGATIVE) Urine Nitrite (NEGATIVE) Urine Bilirubin (NEGATIVE) Urine Urobilinogen (0.2-1.0) mg/dL Ur Leukocyte Esterase (NEGATIVE) Urine RBC /HPF Urine WBC (0-5/HPF) /HPF Ur Epithelial Cells (NOT SEEN) /HPF Urine Bacteria (0-FEW/HPF) /HPF Urine Opiates Screen (NEGATIVE) Ur Oxycodone Screen (NEGATIVE) Urine Methadone Screen (NEGATIVE) Ur Barbiturates Screen (NEGATIVE) U Tricyclic Antidepress (NEGATIVE) Ur Phencyclidine Scrn (NEGATIVE) Ur Amphetamine Screen (NEGATIVE) U Methamphetamines Scrn (NEGATIVE) Urine MDMA Screen (NEGATIVE) U Benzodiazepines Scrn (NEGATIVE) Urine Cocaine Screen (NEGATIVE) U Marijuana (THC) Screen (NEGATIVE) Ethyl Alcohol (0) mg/dL Ketones 07/14/20 07/14/20 Range/Units 05:20 07:52 WBC (5.0-10.0) 10^3/uL RBC (4.2-5.4) 10^6/uL Hgb (12.0-16.0) g/dL Hct (37.0-47.0) % MCV (80-100) fL MCH (27.0-34.0) pg MCHC (33.0-35.0) g/dL Plt Count (150-450) 10^3/uL Neut % (Auto) (42.2-75.2) % Lymph % (Auto) (20.5-50.1) % Harper % (Auto) (2-8) % Eos % (Auto) (1.0-3.0) % Baso % (Auto) (0.0-1.0) % ABG pH (7.35-7.45) ABG pCO2 (35-45) mmHg ABG pO2 (70-100) mmHg ABG HCO3 (22-26) mmol/L ABG O2 Saturation (95-100) % ABG Base Excess ((-2)-(+3)) mmol/L Leon Test O2 Delivery Device Sodium 139 (136-145) mmol/L Potassium 3.7 (3.5-5.1) mmol/L Chloride 107 (98-107) mmol/L Carbon Dioxide 21 (21-32) mmol/L Anion Gap 14.7 H (7-13) mEq/L BUN 10 (7-18) mg/dL Creatinine 0.93 (0.55-1.02) mg/dL Est Cr Clr Drug Dosing 57.20 mL/min Estimated GFR (MDRD) > 60 BUN/Creatinine Ratio (No establ ref range) Glucose 412 H* (74-99) mg/dL POC Glucose 363 H (70-105) mg/dl Lactic Acid (0.4-2.0) mmol/L Calcium 7.5 L (8.5-10.1) mg/dL Phosphorus 1.8 L (2.6-4.7) mg/dL Magnesium 1.5 L (1.8-2.4) mg/dL Total Bilirubin (0.2-1.0) mg/dL AST (15-37) U/L ALT (14-59) U/L Alkaline Phosphatase (46-116) U/L Troponin I (0.000-0.056) ng/mL Total Protein (6.4-8.2) g/dL Albumin (3.4-5.0) g/dL Globulin Albumin/Globulin Ratio Amylase (25-115) U/L Lipase (73-393) U/L Urine Color (YELLOW) Urine Appearance (CLEAR) Urine pH (5.0-9.0) Ur Specific Ward (1.005-1.030) Urine Protein (NEGATIVE) Urine Glucose (UA) (NEGATIVE) Urine Ketones (NEGATIVE) Urine Occult Blood (NEGATIVE) Urine Nitrite (NEGATIVE) Urine Bilirubin (NEGATIVE) Urine Urobilinogen (0.2-1.0) mg/dL Ur Leukocyte Esterase (NEGATIVE) Urine RBC /HPF Urine WBC (0-5/HPF) /HPF Ur Epithelial Cells (NOT SEEN) /HPF Urine Bacteria (0-FEW/HPF) /HPF Urine Opiates Screen (NEGATIVE) Ur Oxycodone Screen (NEGATIVE) Urine Methadone Screen (NEGATIVE) Ur Barbiturates Screen (NEGATIVE) U Tricyclic Antidepress (NEGATIVE) Ur Phencyclidine Scrn (NEGATIVE) Ur Amphetamine Screen (NEGATIVE) U Methamphetamines Scrn (NEGATIVE) Urine MDMA Screen (NEGATIVE) U Benzodiazepines Scrn (NEGATIVE) Urine Cocaine Screen (NEGATIVE) U Marijuana (THC) Screen (NEGATIVE) Ethyl Alcohol (0) mg/dL Ketones Rodolfo Results Last 24 Hours: Microbiology 07/13/20 18:05 Anaerobic Blood Culture - Final Blood - Venous - Lab Draw Med Orders - Current: Current Medications Acetaminophen (Tylenol) 650 mg PO Q4H PRN PRN Reason: Pain (Mild 1-3)/fever Dextrose/Water (Dextrose 50% In Water) 25 ml IVPUSH Q1H PRN PRN Reason: blood sugar <70 Docusate Sodium (Colace) 100 mg PO BID PRN PRN Reason: Constipation Fentanyl (Sublimaze) 25 mcg IVPUSH Q2H PRN PRN Reason: severe pain Fluconazole (Diflucan) 100 mg PO DAILY [facility] Last Admin: 07/14/20 08:34 Dose: 100 mg Documented by: Heparin Sodium (Porcine) (Heparin Sodium) 5,000 units SUBCUT Q8HR JCARLOS Last Admin: 07/14/20 05:06 Dose: Not Given Documented by: Ceftriaxone Sodium 1 gm/ (Sodium Chloride) 50 mls @ 100 mls/hr IV Q24H JCARLOS Last Admin: 07/13/20 20:43 Dose: 100 mls/hr Documented by: Potassium Chloride/Sodium Chloride (Normal Saline With 20 Meq Kcl) 1,000 mls @ 100 mls/hr IV ASDIRECTED JCARLOS Ibuprofen (Motrin) 400 mg PO Q6H PRN PRN Reason: mod pain Last Admin: 07/14/20 08:34 Dose: 400 mg Documented by: Insulin Glargine (Lantus) 20 unit SUBCUT BEDTIME JCARLOS Insulin Human Lispro (Humalog) 0 unit SUBCUT Q4H PRN; Protocol PRN Reason: per protocol Last Admin: 07/14/20 08:34 Dose: 5 units Documented by: Insulin Human NPH (Humulin N) 15 unit SQ ONETIME ONE Stop: 07/14/20 11:59 Magnesium Oxide (Magnesium Oxide) 500 mg PO BIDM [facility] Stop: 07/14/20 18:01 Metoclopramide HCl (Reglan) 10 mg IVPUSH Q6H PRN PRN Reason: Nausea Sodium Chloride (Saline Flush) 10 ml FLUSH ASDIRECTED PRN PRN Reason: Keep Vein Open Sodium Phosphate (Neutra-Phos) 500 mg PO TID [facility] Stop: 07/15/20 09:01 Zolpidem Tartrate (Ambien) 5 mg PO BEDTIME PRN PRN Reason: Sleep Last Admin: 07/13/20 21:12 Dose: 5 mg Documented by: Discontinued Medications Sodium Chloride (Normal Saline) 1,000 mls @ 999 mls/hr IV .BOLUS ONE Stop: 07/13/20 18:20 Last Admin: 07/13/20 17:30 Dose: 999 mls/hr Documented by: Insulin Human Regular 100 unit (/ Sodium Chloride) 100 mls @ 6.346 mls/hr IV TITRATE [facility]; Protocol Last Titration: 07/13/20 19:18 Dose: 0 units/kg/hr, 0 mls/hr Documented by: Potassium Chloride/Sodium Chloride (Normal Saline With 40 Meq Kcl) 1,000 mls @ 250 mls/hr IV ASDIRECTED [facility] Dextrose/Sodium Chloride (Dextrose 5%-Normal Saline) 1,000 mls @ 150 mls/hr IV ASDIRECTED [facility] Last Admin: 07/14/20 04:02 Dose: 150 mls/hr Documented by: Insulin Glargine (Lantus) 10 unit SUBCUT BEDTIME [facility] Last Admin: 07/13/20 22:05 Dose: Not Given Documented by: Insulin Human Regular (Humulin R) 8 unit IV ONETIME ONE Stop: 07/13/20 17:21 Last Admin: 07/13/20 17:32 Dose: 8 units Documented by: Ondansetron HCl (Zofran) 4 mg IV ONETIME ONE Stop: 07/13/20 17:21 Last Admin: 07/13/20 17:30 Dose: 4 mg Documented by: Ondansetron HCl (Zofran Odt) 4 mg PO Q6H PRN PRN Reason: nausea, able to take PO Ondansetron HCl (Zofran) 4 mg IVPUSH Q4H PRN PRN Reason: Nausea/Vomiting Potassium Chloride (Klor-Con 10) 40 meq PO Q6H [facility] Stop: 07/14/20 02:01 Last Admin: 07/14/20 01:44 Dose: 40 meq Documented by: - Exam General: Alert, Oriented Neck: Supple Lungs: Clear to Auscultation, Normal Respiratory Effort GI/Abdominal Exam: Normal Bowel Sounds, No Organomegaly, Tender (Suprapubic mild tenderness). No: Distended (Suprapubic mild tenderness), Guarding, Rigid, Rebound, Hernia Extremities: No Pedal Edema Neurological: No New Focal Deficit Psy/Mental Status: Alert, Normal Affect, Normal Mood Sepsis Event Note - Evaluation Sepsis Screening Result: No Definite Risk - Focused Exam Vital Signs: Vital Signs Temp Pulse Resp BP Pulse Ox 07/14/20 08:00 97.6 F 71 18 106/46 L 98 07/14/20 03:00 97.6 F 76 15 112/60 97 - Problem List & Annotations (1) Vaginal candidiasis SNOMED Code(s): 61955910 Code(s): B37.3 - CANDIDIASIS OF VULVA AND VAGINA Status: Acute Current Visit: Yes (2) Hypokalemia SNOMED Code(s): 39450011 Code(s): E87.6 - HYPOKALEMIA Status: Acute Current Visit: Yes (3) Amphetamine user SNOMED Code(s): 463704531 Code(s): F15.10 - OTHER STIMULANT ABUSE, UNCOMPLICATED Status: Acute Current Visit: Yes (4) UTI (urinary tract infection) SNOMED Code(s): 32114425 Code(s): N39.0 - URINARY TRACT INFECTION, SITE NOT SPECIFIED Status: Acute Current Visit: Yes (5) DKA (diabetic ketoacidoses) SNOMED Code(s): 722267540, 651868553 Code(s): E11.10 - TYPE 2 DIABETES MELLITUS WITH KETOACIDOSIS WITHOUT COMA Status: Acute Current Visit: No Qualifiers: Diabetes mellitus type: type 2 Diabetes mellitus complication detail: without coma Qualified Code(s): E11.10 - Type 2 diabetes mellitus with ketoacidosis without coma (6) New onset type 1 diabetes mellitus, uncontrolled SNOMED Code(s): 852871409 Code(s): E10.65 - TYPE 1 DIABETES MELLITUS WITH HYPERGLYCEMIA Status: Acute Current Visit: No - Problem List Review Problem List Initiated/Reviewed/Updated: Yes - My Orders Last 24 Hours: My Active Orders 07/13/20 19:25 Dextrose 50% in Water 25 ml IVPUSH Q1H PRN Insulin Lispro [HumaLOG] See Protocol SUBCUT Q4H PRN 07/13/20 19:26 Oxygen Therapy [RC] PRN Up With Assistance [RC] ASDIRECTED VTE/DVT Education [RC] PER UNIT ROUTINE Vital Signs [RC] 00,04,08,12,16,20 Acetaminophen [TylenoL] 650 mg PO Q4H PRN Docusate Sodium [Colace] 100 mg PO BID PRN Zolpidem [Ambien] 5 mg PO BEDTIME PRN Resuscitation Status Routine 07/13/20 19:27 Antiembolic Hose [OM.PC] Per Unit Routine 07/13/20 19:28 Antiembolic Devices [RC] ,07/13/20 19:31 Metoclopramide [Reglan] 10 mg IVPUSH Q6H PRN 07/13/20 19:40 fentaNYL [Sublimaze] 25 mcg IVPUSH Q2H PRN 07/13/20 19:41 Ibuprofen [Motrin] 400 mg PO Q6H PRN 07/13/20 20:00 cefTRIAXone [Rocephin] 1 gm Sodium Chloride 0.9% [Normal Saline] 50 ml IV Q24H 07/13/20 22:00 Heparin Sodium 5,000 units SUBCUT Q8HR 07/14/20 09:00 Fluconazole [Diflucan] 100 mg PO DAILY 07/14/20 11:58 Insulin NPH Human Isophane [HumuLIN N] 15 unit SQ ONETIME ONE 07/14/20 12:00 Magnesium Oxide 500 mg PO BIDM Sodium Chloride 0.9% with KCl 20 mEq @ 100 mL/Hr (1000 mL) NS + KCl 20mEq/L [Normal Saline with 20 mEq KCl] 1,000 ml IV ASDIRECTED 07/14/20 14:00 Phosphorus #1 [Neutra-Phos] 500 mg PO TID 07/14/20 21:00 Insulin Glarg,Human.Rec.Analog [LantUS] 20 unit SUBCUT BEDTIME - Plan Plan:: 55-year-old presented with polydipsia, polyuria, weakness. New Diagnosis of Diabetes, likley type 1 increase Lantus Stop D5 Continue Supplemental insulin as needed Hypoglycemia treatment as needed DKA Improved Continue to Hydrate well Replace hypokalemia, hypophosphatemia and low magnesium Stop D5 IV fluid pseudohyponatremia with high blood sugars Will hydrate well Recheck in the morning UTI blood culture: pending urine culture: pending Treat empirically with ceftriaxone likely amphetamine use based on urine drug screen Patient denies DVT prophylaxis with subcutaneous heparin
[2020-07-14] MEDS: Acetaminophen 325 MG Tab PO PRN (12:13)
[2020-07-14] MEDS: Phosphorus #1 250 MG Tab PO SCH ×3 (13:22→21:31)
[2020-07-14] MEDS: NS + KCl 20mEq/L 1,000 ML IV SCH (14:29)
[2020-07-14] MEDS: fentaNYL 100 MCG/2 ML SDV IVPUSH PRN (20:27)
[2020-07-14] MEDS: cefTRIAXone 1 GM in Sodium Chloride 0.9% 50 ML IV SCH (20:30)
[2020-07-14] MEDS: Insulin Glarg,Human.Rec.Analog 100 Unit/ML SUBCUT SCH (20:41)
[2020-07-14] MEDS: Zolpidem 5 MG Tab PO PRN (21:30)
[2020-07-15] MEDS: Insulin Lispro 100 Units/ML 3 ML Vial SUBCUT PRN ×2 (00:35→04:11)
[2020-07-15] MEDS: NS + KCl 20mEq/L 1,000 ML IV SCH ×2 (00:57→11:14)
[2020-07-15] MEDS: fentaNYL 100 MCG/2 ML SDV IVPUSH PRN ×6 (04:20→22:38)
[2020-07-15] MEDS: Ibuprofen 400 MG Tab PO PRN ×2 (05:11→21:05)
[2020-07-15] MEDS: Heparin Sodium 5,000 Units/ML Vial SUBCUT SCH ×3 (05:12→21:49)
[2020-07-15 06:44] LABS: ANION GAP 12.9 mEq/L (7-13); CHLORIDE,CL 111 mmol/L (98-107); SODIUM,NA 144 mmol/L (136-145)
[2020-07-15] MEDS: Fluconazole 100 MG Tab PO SCH (08:39)
[2020-07-15] MEDS ORDERED: Iopamidol 612 MG/ML 100 ML Bottle IVPUSH ONE (11:19)
--- NOTE | 2020-07-15 11:53 | CT ---
PROCEDURE INFORMATION: Exam: CT Abdomen And Pelvis With Contrast Exam date and time: 07/15/2020 11:23 AM Age: 55 years old Clinical indication: Abdominal pain; Additional info: Back, flank pain, abdominal pain TECHNIQUE: Imaging protocol: Computed tomography of the abdomen and pelvis with intravenous contrast. Radiation optimization: All CT scans at this facility use at least one of these dose optimization techniques: automated exposure control; mA and/or kV adjustment per patient size (includes targeted exams where dose is matched to clinical indication); or iterative reconstruction. Contrast material: ISOVUE; Contrast volume: 75 ml; Contrast route: INTRAVENOUS (IV); COMPARISON: No relevant prior studies available. FINDINGS: Pleural space: Small bilateral pleural effusions are present. The lung bases demonstrate minimal patchy ground-glass attenuation. This is nonspecific and may be due to atelectasis. Liver: Normal. No mass. Gallbladder and bile ducts: The gallbladder has been removed. There is no biliary ductal dilatation. Pancreas: Normal. No ductal dilation. Spleen: Normal. No splenomegaly. Adrenals: Normal. No mass. Kidneys and ureters: Normal. No hydronephrosis. Stomach and bowel: Scattered diverticular present within the colon predominantly within the sigmoid colon. Very minimal pericolonic fat stranding is present within the sigmoid colon best seen on image number 82 of series 2. Findings could represent very mild diverticulitis. Appendix: No evidence of appendicitis. Intraperitoneal space: Small amount of free fluid is present within the pelvis. Vasculature: Moderate grade atherosclerotic change of the abdominal aorta is present without aneurysm or dissection. Lymph nodes: Unremarkable. No enlarged lymph nodes. Bladder: Unremarkable as visualized. Reproductive: The uterus has been removed. Bones/joints: Unremarkable. No acute fracture. Soft tissues: Unremarkable. IMPRESSION: 1. Numerous tip moist diverticula are present with mild pericolonic fat stranding. Mild diverticulitis is possible. No abscess is present.
[2020-07-15] MEDS ORDERED: Calcium Carbonate 500 MG Tab.Chew PO PRN (12:54)
--- NOTE | 2020-07-15 13:05 | PCM.PN ---
- General Info Date of Service: 07/15/20 Admission Dx/Problem (Free Text): Admission Diagnosis/Problem Admission Diagnosis/Problem Diabetic ketoacidosis Subjective Update: Continues to have a moderate low back pain radiating towards the left groin area. Not much appetite, no associated fever. Pain started a few days prior to admission She is also complaining of an epigastric area pain. Blood sugars improved. No hypoglycemia. Functional Status: Reports: Tolerating Diet (Ate breakfast but not lunch). Denies: Pain Controlled - Review of Systems General: Denies: Fever Pulmonary: Denies: Shortness of Breath Cardiovascular: Denies: Chest Pain, Edema Gastrointestinal: Reports: Abdominal Pain. Denies: Diarrhea, Vomiting Psychiatric: Reports: Other (Appears anxious about the diagnosis of diabetes, frustrated) - Patient Data Vitals - Most Recent: Last Vital Signs Temp 97.5 F 07/15/20 08:00 Pulse 73 07/15/20 08:00 Resp 19 07/15/20 08:00 BP 111/57 L 07/15/20 08:00 Pulse Ox 99 07/15/20 08:00 Weight - Most Recent: 139 lb 14.4 oz I&O - Last 24 Hours: Intake & Output 07/14/20 07/15/20 07/15/20 22:59 06:59 14:59 Intake Total 860 175 Balance 860 175 Lab Results Last 24 Hours: Laboratory Results - last 24 hr 07/14/20 07/14/20 07/15/20 Range/Units 16:38 20:19 00:29 WBC (5.0-10.0) 10^3/uL RBC (4.2-5.4) 10^6/uL Hgb (12.0-16.0) g/dL Hct (37.0-47.0) % MCV (80-100) fL MCH (27.0-34.0) pg MCHC (33.0-35.0) g/dL Plt Count (150-450) 10^3/uL Neut % (Auto) (42.2-75.2) % Lymph % (Auto) (20.5-50.1) % Jennings % (Auto) (2-8) % Eos % (Auto) (1.0-3.0) % Baso % (Auto) (0.0-1.0) % Sodium (136-145) mmol/L Potassium (3.5-5.1) mmol/L Chloride (98-107) mmol/L Carbon Dioxide (21-32) mmol/L Anion Gap (7-13) mEq/L BUN (7-18) mg/dL Creatinine (0.55-1.02) mg/dL Est Cr Clr Drug Dosing mL/min Estimated GFR (MDRD) Glucose (74-99) mg/dL POC Glucose 337 H 316 H 335 H (70-105) mg/dl Calcium (8.5-10.1) mg/dL Phosphorus (2.6-4.7) mg/dL Magnesium (1.8-2.4) mg/dL 07/15/20 07/15/20 07/15/20 Range/Units 04:04 05:35 05:35 WBC 5.5 (5.0-10.0) 10^3/uL RBC 3.82 L (4.2-5.4) 10^6/uL Hgb 11.6 L (12.0-16.0) g/dL Hct 33.9 L (37.0-47.0) % MCV 88.7 (80-100) fL MCH 30.4 (27.0-34.0) pg MCHC 34.2 (33.0-35.0) g/dL Plt Count 228 (150-450) 10^3/uL Neut % (Auto) 54.1 (42.2-75.2) % Lymph % (Auto) 39.3 (20.5-50.1) % Jennings % (Auto) 5.3 (2-8) % Eos % (Auto) 1.1 (1.0-3.0) % Baso % (Auto) 0.2 (0.0-1.0) % Sodium 144 (136-145) mmol/L Potassium 2.9 L (3.5-5.1) mmol/L Chloride 111 H (98-107) mmol/L Carbon Dioxide 23 (21-32) mmol/L Anion Gap 12.9 (7-13) mEq/L BUN 9 (7-18) mg/dL Creatinine 0.78 (0.55-1.02) mg/dL Est Cr Clr Drug Dosing 68.21 mL/min Estimated GFR (MDRD) > 60 Glucose 156 H (74-99) mg/dL POC Glucose 226 H (70-105) mg/dl Calcium 7.7 L (8.5-10.1) mg/dL Phosphorus 3.7 (2.6-4.7) mg/dL Magnesium 1.6 L (1.8-2.4) mg/dL 07/15/20 07/15/20 Range/Units 07:50 11:59 WBC (5.0-10.0) 10^3/uL RBC (4.2-5.4) 10^6/uL Hgb (12.0-16.0) g/dL Hct (37.0-47.0) % MCV (80-100) fL MCH (27.0-34.0) pg MCHC (33.0-35.0) g/dL Plt Count (150-450) 10^3/uL Neut % (Auto) (42.2-75.2) % Lymph % (Auto) (20.5-50.1) % Jennings % (Auto) (2-8) % Eos % (Auto) (1.0-3.0) % Baso % (Auto) (0.0-1.0) % Sodium (136-145) mmol/L Potassium (3.5-5.1) mmol/L Chloride (98-107) mmol/L Carbon Dioxide (21-32) mmol/L Anion Gap (7-13) mEq/L BUN (7-18) mg/dL Creatinine (0.55-1.02) mg/dL Est Cr Clr Drug Dosing mL/min Estimated GFR (MDRD) Glucose (74-99) mg/dL POC Glucose 148 H 239 H (70-105) mg/dl Calcium (8.5-10.1) mg/dL Phosphorus (2.6-4.7) mg/dL Magnesium (1.8-2.4) mg/dL Rodolfo Results Last 24 Hours: Microbiology 07/13/20 17:40 Aerobic Blood Culture - Preliminary Blood - Venous NO GROWTH AFTER 1 DAY Anaerobic Blood Culture - Preliminary NO GROWTH AFTER 1 DAY 07/13/20 18:05 Aerobic Blood Culture - Preliminary Blood - Venous - Lab Draw NO GROWTH AFTER 1 DAY Anaerobic Blood Culture - Final Med Orders - Current: Current Medications Acetaminophen (Tylenol) 650 mg PO Q4H PRN PRN Reason: Pain (Mild 1-3)/fever Last Admin: 07/14/20 12:13 Dose: 650 mg Documented by: Calcium Carbonate/Glycine (Tums) 500 mg PO Q4H PRN PRN Reason: abd. pain Dextrose/Water (Dextrose 50% In Water) 25 ml IVPUSH Q1H PRN PRN Reason: blood sugar <70 Docusate Sodium (Colace) 100 mg PO BID PRN PRN Reason: Constipation Fentanyl (Sublimaze) 25 mcg IVPUSH Q2H PRN PRN Reason: severe pain Last Admin: 07/15/20 11:01 Dose: 25 mcg Documented by: Fluconazole (Diflucan) 100 mg PO DAILY [facility] Last Admin: 07/15/20 08:39 Dose: 100 mg Documented by: Heparin Sodium (Porcine) (Heparin Sodium) 5,000 units SUBCUT Q8HR [facility] Last Admin: 07/15/20 05:12 Dose: 5,000 units Documented by: Piperacillin Sod/Tazobactam (Sod 3.375 gm/ Sodium Chloride) 100 mls @ 200 mls/hr IV Q6H [facility] Ibuprofen (Motrin) 400 mg PO Q6H PRN PRN Reason: mod pain Last Admin: 07/15/20 05:11 Dose: 400 mg Documented by: Insulin Glargine (Lantus) 20 unit SUBCUT BEDTIME [facility] Last Admin: 07/14/20 20:41 Dose: 20 units Documented by: Insulin Human Lispro (Humalog) 0 unit SUBCUT WITHMEALSANDBED [facility]; Protocol Magnesium Oxide (Magnesium Oxide) 250 mg PO BIDMEALS [facility] Stop: 07/15/20 18:01 Metoclopramide HCl (Reglan) 10 mg IVPUSH Q6H PRN PRN Reason: Nausea Pantoprazole Sodium (Protonix) 40 mg PO BIDAC [facility] Potassium Chloride (Klor-Con 10) 40 meq PO BIDMEALS [facility] Stop: 07/15/20 18:01 Sodium Chloride (Saline Flush) 10 ml FLUSH ASDIRECTED PRN PRN Reason: Keep Vein Open Zolpidem Tartrate (Ambien) 5 mg PO BEDTIME PRN PRN Reason: Sleep Last Admin: 07/14/20 21:30 Dose: 5 mg Documented by: Discontinued Medications Sodium Chloride (Normal Saline) 1,000 mls @ 999 mls/hr IV .BOLUS ONE Stop: 07/13/20 18:20 Last Admin: 07/13/20 17:30 Dose: 999 mls/hr Documented by: Insulin Human Regular 100 unit (/ Sodium Chloride) 100 mls @ 6.346 mls/hr IV TITRATE [facility]; Protocol Last Titration: 07/13/20 19:18 Dose: 0 units/kg/hr, 0 mls/hr Documented by: Potassium Chloride/Sodium Chloride (Normal Saline With 40 Meq Kcl) 1,000 mls @ 250 mls/hr IV ASDIRECTED [facility]CARL[facility] Dextrose/Sodium Chloride (Dextrose 5%-Normal Saline) 1,000 mls @ 150 mls/hr IV ASDIRECTED [facility] Last Admin: 07/14/20 04:02 Dose: 150 mls/hr Documented by: Ceftriaxone Sodium 1 gm/ (Sodium Chloride) 50 mls @ 100 mls/hr IV Q24H [facility] Last Admin: 07/14/20 20:30 Dose: 100 mls/hr Documented by: Potassium Chloride/Sodium Chloride (Normal Saline With 20 Meq Kcl) 1,000 mls @ 100 mls/hr IV ASDIRECTED [facility] Last Admin: 07/15/20 11:14 Dose: 100 mls/hr Documented by: Insulin Glargine (Lantus) 10 unit SUBCUT BEDTIME [facility] Last Admin: 07/13/20 22:05 Dose: Not Given Documented by: Insulin Human Lispro (Humalog) 0 unit SUBCUT Q4H PRN; Protocol PRN Reason: per protocol Last Admin: 07/15/20 04:11 Dose: 2 units Documented by: Insulin Human NPH (Humulin N) 15 unit SQ ONETIME ONE Stop: 07/14/20 11:59 Last Admin: 07/14/20 13:21 Dose: 15 unit Documented by: Insulin Human Regular (Humulin R) 8 unit IV ONETIME ONE Stop: 07/13/20 17:21 Last Admin: 07/13/20 17:32 Dose: 8 units Documented by: Iopamidol (Isovue-300 (61%)) 100 ml IVPUSH ONETIME ONE Stop: 07/15/20 11:20 Last Admin: 07/15/20 11:38 Dose: 100 ml Documented by: Magnesium Oxide (Magnesium Oxide) 500 mg PO BIDMEALS [facility] Stop: 07/14/20 18:01 Last Admin: 07/14/20 19:17 Dose: 500 mg Documented by: Ondansetron HCl (Zofran) 4 mg IV ONETIME ONE Stop: 07/13/20 17:21 Last Admin: 07/13/20 17:30 Dose: 4 mg Documented by: Ondansetron HCl (Zofran Odt) 4 mg PO Q6H PRN PRN Reason: nausea, able to take PO Ondansetron HCl (Zofran) 4 mg IVPUSH Q4H PRN PRN Reason: Nausea/Vomiting Potassium Chloride (Klor-Con 10) 40 meq PO Q6H [facility] Stop: 07/14/20 02:01 Last Admin: 07/14/20 01:44 Dose: 40 meq Documented by: Sodium Phosphate (Neutra-Phos) 500 mg PO TID [facility] Stop: 07/14/20 21:01 Last Admin: 07/14/20 21:31 Dose: 500 mg Documented by: - Exam General: Alert, Oriented Lungs: Clear to Auscultation, Normal Respiratory Effort Cardiovascular: Regular Rate, Regular Rhythm GI/Abdominal Exam: Normal Bowel Sounds, Soft, Tender (Complains of diffuse tenderness). No: Rigid, Rebound Skin: Warm Psy/Mental Status: Alert, Anxious Sepsis Event Note - Evaluation Sepsis Screening Result: No Definite Risk - Focused Exam Vital Signs: Vital Signs Temp Pulse Resp BP Pulse Ox 07/15/20 08:00 97.5 F 73 19 111/57 L 99 - Problem List & Annotations (1) Vaginal candidiasis SNOMED Code(s): 30916142 Code(s): B37.3 - CANDIDIASIS OF VULVA AND VAGINA Status: Acute Current Visit: Yes (2) Hypokalemia SNOMED Code(s): 86701225 Code(s): E87.6 - HYPOKALEMIA Status: Acute Current Visit: Yes (3) Amphetamine user SNOMED Code(s): 639092402 Code(s): F15.10 - OTHER STIMULANT ABUSE, UNCOMPLICATED Status: Acute Current Visit: Yes (4) UTI (urinary tract infection) SNOMED Code(s): 62988423 Code(s): N39.0 - URINARY TRACT INFECTION, SITE NOT SPECIFIED Status: Acute Current Visit: Yes (5) DKA (diabetic ketoacidoses) SNOMED Code(s): 707858380, 885371034 Code(s): E11.10 - TYPE 2 DIABETES MELLITUS WITH KETOACIDOSIS WITHOUT COMA Status: Acute Current Visit: No Qualifiers: Diabetes mellitus type: type 2 Diabetes mellitus complication detail: without coma Qualified Code(s): E11.10 - Type 2 diabetes mellitus with ketoacidosis without coma (6) New onset type 1 diabetes mellitus, uncontrolled SNOMED Code(s): 517773853 Code(s): E10.65 - TYPE 1 DIABETES MELLITUS WITH HYPERGLYCEMIA Status: Acute Current Visit: No - Problem List Review Problem List Initiated/Reviewed/Updated: Yes - My Orders Last 24 Hours: My Active Orders 07/14/20 13:26 Diabetes Education [RC] DAILY 07/14/20 13:27 Consult to [facility] [Consult to Diabetic Nurse Specialist] [CONS] Routine 07/14/20 21:00 Insulin Glarg,Human.Rec.Analog [LantUS] 20 unit SUBCUT BEDTIME 07/15/20 11:29 LACTIC ACID [CHEM] Routine LIPASE [CHEM] Routine 07/15/20 11:30 Magnesium Oxide 250 mg PO BIDMEALS Potassium Chloride [Klor-Con 10] 40 meq PO BIDMEALS 07/15/20 12:00 Insulin Lispro [HumaLOG] See Protocol SUBCUT WITHMEALSANDBED 07/15/20 12:45 Piperacillin/Tazobactam [Zosyn] 3.375 gm Sodium Chloride 0.9% [Normal Saline] 100 ml IV Q6H 07/15/20 12:54 Calcium Carbonate [Tums] 500 mg PO Q4H PRN 07/15/20 13:00 Lidocaine 5% [Lidoderm 5%] 700 mg TOP DAILY Pantoprazole [ProTONIX] 40 mg PO BIDAC 07/16/20 05:15 BASIC METABOLIC PANEL,BMP [CHEM] AM CBC WITH AUTO DIFF [HEME] AM - Plan Plan:: 55-year-old presented with polydipsia, polyuria, weakness. New Diagnosis of Diabetes, likely type 1 Better controlled with increased dose of Lantus Continue Supplemental insulin as needed Hypoglycemia treatment as needed DKA Resolved Replace hypokalemia Abdominal pain, back pain The back pain appears more musculoskeletal, no associated lower extremity neurological symptoms She has mentioned right foot second toe isolated numbness that is unlikely related to this Due to diffuse abdominal pain and obtained a CT of the abdomen This is grossly unremarkable. Questioning mild sigmoid diverticulitis. This is not associated with leukocytosis, no fever. Will switch ceftriaxone to Zosyn Continue pain control with Tylenol, Motrin Add Protonix for possible gastritis UTI blood culture: pending urine culture: pending Treat empirically with Zosyn likely amphetamine use based on urine drug screen Patient denied on admission DVT prophylaxis with subcutaneous heparin
[2020-07-15] MEDS: Insulin Lispro 100 Units/ML 3 ML Vial SUBCUT SCH ×3 (13:22→21:47)
[2020-07-15] MEDS: Pantoprazole 40 MG Tab.CR PO SCH ×2 (13:24→17:12)
[2020-07-15] MEDS: Potassium Chloride 10 MEQ Tab.ER PO SCH ×2 (13:24→17:12)
[2020-07-15] MEDS: Piperacillin/Tazobactam 3.375 GM in Sodium Chloride 0.9% 100 ML IV SCH ×3 (13:25→21:17)
[2020-07-15] MEDS: Acetaminophen 325 MG Tab PO PRN (15:18)
[2020-07-15] MEDS: Lidocaine 5% 700 MG Patch TOP SCH (15:23)
[2020-07-15] MEDS: Zolpidem 5 MG Tab PO PRN (21:06)
[2020-07-15] MEDS: Insulin Glarg,Human.Rec.Analog 100 Unit/ML SUBCUT SCH (21:48)
[2020-07-15] MEDS ORDERED: Loperamide 2 MG Cap PO PRN (22:04)
[2020-07-15] MEDS ORDERED: Ondansetron 4 MG Tab.DIS PO PRN (22:05)
[2020-07-15] MEDS ORDERED: Ondansetron 4 MG/2 ML SDV IVPUSH PRN (22:06)
[2020-07-16] MEDS: Piperacillin/Tazobactam 3.375 GM in Sodium Chloride 0.9% 100 ML IV SCH ×2 (01:51→09:14)
[2020-07-16] MEDS: Pantoprazole 40 MG Tab.CR PO SCH (06:00)
[2020-07-16] MEDS: Heparin Sodium 5,000 Units/ML Vial SUBCUT SCH (06:01)
[2020-07-16 06:31] LABS: ANION GAP 11.9 mEq/L (7-13); CHLORIDE,CL 109 mmol/L (98-107); SODIUM,NA 141 mmol/L (136-145)
[2020-07-16] MEDS: fentaNYL 100 MCG/2 ML SDV IVPUSH PRN ×2 (07:23→12:55)
[2020-07-16 08:25] VITALS: BP 106/55; PULSE 67
[2020-07-16] MEDS: Insulin Lispro 100 Units/ML 3 ML Vial SUBCUT SCH ×2 (09:13→13:12)
[2020-07-16] MEDS: Sodium Chloride 0.9% 10 ML Syringe FLUSH PRN ×2 (09:15→12:56)
[2020-07-16] MEDS: Lidocaine 5% 700 MG Patch TOP SCH (09:15)
--- NOTE | 2020-07-16 10:45 | PCM.DCSUM1 ---
Discharge Summary - Hospital Course Free Text/Narrative:: 55-year-old presented with polydipsia, polyuria, weakness. New Diagnosis of Diabetes, likely type 1 started Lantus treatment Discussed importance of blood sugar control. She will be checking blood sugars 4 times a day, before meals and at night. She will follow-up with her primary care physician in a few days to further tighten blood sugar control. Will have appointment with visual educator. Discussed signs symptoms and management of hypoglycemia DKA Resolved Replaced hypokalemia Abdominal pain, back pain The back pain appears more musculoskeletal, no associated lower extremity neurological symptoms She has mentioned right foot second toe isolated numbness that is unlikely related to this Use Lidoderm patch for back pain along with Motrin Due to diffuse abdominal pain and obtained a CT of the abdomen This is grossly unremarkable. Questioning mild sigmoid diverticulitis. This is not associated with leukocytosis, no fever. Lipase normal, lactic acid was normal. The nausea, vomiting present on admission and resolved. Had loose bowel mov ements. C. difficile pending Improved with Imodium. Will treat with Augmentin Continue pain control with Tylenol, Motrin Add Protonix for possible gastritis UTI blood culture: Negative for now urine culture: pending Treat empirically with Augmentin likely amphetamine use based on urine drug screen Patient denied on admission Diagnosis: Stroke: No - Discharge Data Discharge Date: 07/16/20 Discharge Disposition: Home, Self-Care 01 Condition: Stable - Referral to Home Health Primary Care Physician: Sagrario Torres PA-C - Discharge Diagnosis/Problem(s) (1) Vaginal candidiasis SNOMED Code(s): 68795062 ICD Code: B37.3 - CANDIDIASIS OF VULVA AND VAGINA Status: Acute Current Visit: Yes (2) Hypokalemia SNOMED Code(s): 06641165 ICD Code: E87.6 - HYPOKALEMIA Status: Acute Current Visit: Yes (3) Amphetamine user SNOMED Code(s): 527754150 ICD Code: F15.10 - OTHER STIMULANT ABUSE, UNCOMPLICATED Status: Acute Current Visit: Yes (4) UTI (urinary tract infection) SNOMED Code(s): 86751692 ICD Code: N39.0 - URINARY TRACT INFECTION, SITE NOT SPECIFIED Status: Acute Current Visit: Yes Qualifiers: Urinary tract infection type: acute cystitis (5) DKA (diabetic ketoacidoses) SNOMED Code(s): 566395519, 053560497 ICD Code: E11.10 - TYPE 2 DIABETES MELLITUS WITH KETOACIDOSIS WITHOUT COMA Status: Acute Current Visit: No Qualifiers: Diabetes mellitus type: type 1 Diabetes mellitus complication detail: without coma Qualified Code(s): E10.10 - Type 1 diabetes mellitus with ketoacidosis without coma (6) New onset type 1 diabetes mellitus, uncontrolled SNOMED Code(s): 936713723 ICD Code: E10.65 - TYPE 1 DIABETES MELLITUS WITH HYPERGLYCEMIA Status: Acute Current Visit: No - Patient Summary/Data Consults: Consultations 07/14/20 13:27 Consult to Drywall Applicator [Consult to Diabetic Nurse Specialist] [CONS] Routine - Patient Instructions Diet: Heart Healthy Diet Activity: As Tolerated - Discharge Plan *PRESCRIPTION DRUG MONITORING PROGRAM REVIEWED*: Not Applicable *COPY OF PRESCRIPTION DRUG MONITORING REPORT IN PATIENT ORIANA: Not Applicable Prescriptions/Med Rec: Amoxicillin/Potassium Clav [Augmentin 500-125 Tablet] 1 each PO TID #21 tablet Insulin Glarg,Human.Rec.Analog [Lantus] 20 unit SUBCUT BEDTIME #1 pen Lidocaine 5% [Lidoderm 5%] 700 mg TOP DAILY #6 patch Pantoprazole [ProTONIX] 40 mg PO DAILY #30 tab.cr Home Medications: Home Meds Acetaminophen [Tylenol] 325 mg PO Q4H PRN 07/13/20 [History] Amoxicillin/Potassium Clav [Augmentin 500-125 Tablet] 1 each PO TID #21 tablet 07/16/20 [Rx] Insulin Glarg,Human.Rec.Analog [Lantus] 20 unit SUBCUT BEDTIME #1 pen 07/16/20 [Rx] Lidocaine 5% [Lidoderm 5%] 700 mg TOP DAILY #6 patch 07/16/20 [Rx] Pantoprazole [ProTONIX] 40 mg PO DAILY #30 tab.cr 07/16/20 [Rx] Oxygen Therapy Mode: Room Air Patient Handouts: Diverticulitis, [id number] Referrals: PCP,Unknown [Ordering Only Provider] - (in 2-3 days ) - Discharge Summary/Plan Comment DC Time >30 min.: No - General Info Date of Service: 07/16/20 Admission Dx/Problem (Free Text: Admission Diagnosis/Problem Admission Diagnosis/Problem Diabetic ketoacidosis Functional Status: Reports: Tolerating Diet - Review of Systems General: Denies: Fever Pulmonary: Denies: Shortness of Breath Cardiovascular: Denies: Chest Pain, Edema Gastrointestinal: Reports: Abdominal Pain (left lower q) Genitourinary: Denies: Dysuria Neurological: Denies: Confusion Psychiatric: Denies: Confusion - Patient Data Vitals - Most Recent: Last Vital Signs Temp 97.8 F 07/16/20 08:00 Pulse 67 07/16/20 08:00 Resp 20 07/16/20 08:00 BP 106/55 L 07/16/20 08:00 Pulse Ox 99 07/16/20 08:00 Weight - Most Recent: 139 lb 6.4 oz I&O - Last 24 hours: Intake & Output 07/15/20 07/16/20 07/16/20 22:59 06:59 14:59 Intake Total 1600 175 Balance 1600 175 Lab Results - Last 24 hrs: Laboratory Results - last 24 hr 07/15/20 07/15/20 07/15/20 Range/Units 11:59 12:41 12:41 WBC (5.0-10.0) 10^3/uL RBC (4.2-5.4) 10^6/uL Hgb (12.0-16.0) g/dL Hct (37.0-47.0) % MCV (80-100) fL MCH (27.0-34.0) pg MCHC (33.0-35.0) g/dL Plt Count (150-450) 10^3/uL Neut % (Auto) (42.2-75.2) % Lymph % (Auto) (20.5-50.1) % Grant % (Auto) (2-8) % Eos % (Auto) (1.0-3.0) % Baso % (Auto) (0.0-1.0) % Sodium (136-145) mmol/L Potassium (3.5-5.1) mmol/L Chloride (98-107) mmol/L Carbon Dioxide (21-32) mmol/L Anion Gap (7-13) mEq/L BUN (7-18) mg/dL Creatinine (0.55-1.02) mg/dL Est Cr Clr Drug Dosing mL/min Estimated GFR (MDRD) Glucose (74-99) mg/dL POC Glucose 239 H (70-105) mg/dl Lactic Acid 0.7 (0.4-2.0) mmol/L Calcium (8.5-10.1) mg/dL Lipase 263 (73-393) U/L 07/15/20 07/15/20 07/16/20 Range/Units 17:03 21:29 05:25 WBC 4.9 L (5.0-10.0) 10^3/uL RBC 3.74 L (4.2-5.4) 10^6/uL Hgb 11.4 L (12.0-16.0) g/dL Hct 34.0 L (37.0-47.0) % MCV 90.9 (80-100) fL MCH 30.5 (27.0-34.0) pg MCHC 33.5 (33.0-35.0) g/dL Plt Count 195 (150-450) 10^3/uL Neut % (Auto) 59.9 (42.2-75.2) % Lymph % (Auto) 32.6 (20.5-50.1) % Grant % (Auto) 5.7 (2-8) % Eos % (Auto) 1.8 (1.0-3.0) % Baso % (Auto) 0.0 (0.0-1.0) % Sodium (136-145) mmol/L Potassium (3.5-5.1) mmol/L Chloride (98-107) mmol/L Carbon Dioxide (21-32) mmol/L Anion Gap (7-13) mEq/L BUN (7-18) mg/dL Creatinine (0.55-1.02) mg/dL Est Cr Clr Drug Dosing mL/min Estimated GFR (MDRD) Glucose (74-99) mg/dL POC Glucose 200 H 239 H (70-105) mg/dl Lactic Acid (0.4-2.0) mmol/L Calcium (8.5-10.1) mg/dL Lipase (73-393) U/L 07/16/20 07/16/20 Range/Units 05:25 07:56 WBC (5.0-10.0) 10^3/uL RBC (4.2-5.4) 10^6/uL Hgb (12.0-16.0) g/dL Hct (37.0-47.0) % MCV (80-100) fL MCH (27.0-34.0) pg MCHC (33.0-35.0) g/dL Plt Count (150-450) 10^3/uL Neut % (Auto) (42.2-75.2) % Lymph % (Auto) (20.5-50.1) % Grant % (Auto) (2-8) % Eos % (Auto) (1.0-3.0) % Baso % (Auto) (0.0-1.0) % Sodium 141 (136-145) mmol/L Potassium 3.9 (3.5-5.1) mmol/L Chloride 109 H (98-107) mmol/L Carbon Dioxide 24 (21-32) mmol/L Anion Gap 11.9 (7-13) mEq/L BUN 5 L (7-18) mg/dL Creatinine 0.71 (0.55-1.02) mg/dL Est Cr Clr Drug Dosing 74.93 mL/min Estimated GFR (MDRD) > 60 Glucose 223 H (74-99) mg/dL POC Glucose 200 H (70-105) mg/dl Lactic Acid (0.4-2.0) mmol/L Calcium 7.8 L (8.5-10.1) mg/dL Lipase (73-393) U/L LIVAN Results - Last 24 hrs: Microbiology 07/13/20 18:08 Urine Culture - Preliminary Urine, Voided 07/13/20 17:40 Aerobic Blood Culture - Preliminary Blood - Venous NO GROWTH AFTER 2 DAYS Anaerobic Blood Culture - Preliminary NO GROWTH AFTER 2 DAYS 07/13/20 18:05 Aerobic Blood Culture - Preliminary Blood - Venous - Lab Draw NO GROWTH AFTER 2 DAYS Anaerobic Blood Culture - Final Med Orders - Current: Current Medications Acetaminophen (Tylenol) 650 mg PO Q4H PRN PRN Reason: Pain (Mild 1-3)/fever Last Admin: 07/15/20 15:18 Dose: 650 mg Documented by: Calcium Carbonate/Glycine (Tums) 500 mg PO Q4H PRN PRN Reason: abd. pain Dextrose/Water (Dextrose 50% In Water) 25 ml IVPUSH Q1H PRN PRN Reason: blood sugar <70 Docusate Sodium (Colace) 100 mg PO BID PRN PRN Reason: Constipation Fentanyl (Sublimaze) 25 mcg IVPUSH Q2H PRN PRN Reason: severe pain Last Admin: 07/16/20 07:23 Dose: 25 mcg Documented by: Heparin Sodium (Porcine) (Heparin Sodium) 5,000 units SUBCUT Q8HR [facility] Last Admin: 07/16/20 06:01 Dose: 5,000 units Documented by: Piperacillin Sod/Tazobactam (Sod 3.375 gm/ Sodium Chloride) 100 mls @ 200 mls/hr IV Q6H [facility] Last Admin: 07/16/20 09:14 Dose: 200 mls/hr Documented by: Ibuprofen (Motrin) 400 mg PO Q6H PRN PRN Reason: mod pain Last Admin: 07/15/20 21:05 Dose: 400 mg Documented by: Insulin Glargine (Lantus) 20 unit SUBCUT BEDTIME [facility] Last Admin: 07/15/20 21:48 Dose: 20 units Documented by: Insulin Human Lispro (Humalog) 0 unit SUBCUT WITHMEALSANDBED [facility]; Protocol Last Admin: 07/16/20 09:13 Dose: 4 units Documented by: Lidocaine (Lidoderm 5%) 700 mg TOP DAILY [facility] Last Admin: 07/16/20 09:15 Dose: 700 mg Documented by: Loperamide HCl (Imodium) 2 mg PO Q6H PRN PRN Reason: Diarrhea Last Admin: 07/15/20 22:35 Dose: 2 mg Documented by: Metoclopramide HCl (Reglan) 10 mg IVPUSH Q6H PRN PRN Reason: Nausea Last Admin: 07/15/20 22:36 Dose: 10 mg Documented by: Miscellaneous Information (Remove Patch) 1 ea TRDERM BEDTIME [facility] Last Admin: 07/15/20 22:00 Dose: Not Given Documented by: Ondansetron HCl (Zofran Odt) 4 mg PO Q6H PRN PRN Reason: Nausea Ondansetron HCl (Zofran) 4 mg IVPUSH Q6H PRN PRN Reason: Nausea/Vomiting Pantoprazole Sodium (Protonix) 40 mg PO BIDAC [facility] Last Admin: 07/16/20 06:00 Dose: 40 mg Documented by: Sodium Chloride (Saline Flush) 10 ml FLUSH ASDIRECTED PRN PRN Reason: Keep Vein Open Last Admin: 09/06/20 09:15 Dose: 10 ml Documented by: Zolpidem Tartrate (Ambien) 5 mg PO BEDTIME PRN PRN Reason: Sleep Last Admin: 07/15/20 21:06 Dose: 5 mg Documented by: Discontinued Medications Fluconazole (Diflucan) 100 mg PO DAILY [facility] Last Admin: 07/15/20 08:39 Dose: 100 mg Documented by: Sodium Chloride (Normal Saline) 1,000 mls @ 999 mls/hr IV .BOLUS ONE Stop: 07/13/20 18:20 Last Admin: 07/13/20 17:30 Dose: 999 mls/hr Documented by: Insulin Human Regular 100 unit (/ Sodium Chloride) 100 mls @ 6.346 mls/hr IV TITRATE [facility]; Protocol Last Titration: 07/13/20 19:18 Dose: 0 units/kg/hr, 0 mls/hr Documented by: Potassium Chloride/Sodium Chloride (Normal Saline With 40 Meq Kcl) 1,000 mls @ 250 mls/hr IV ASDIRECTED JCARLOS Dextrose/Sodium Chloride (Dextrose 5%-Normal Saline) 1,000 mls @ 150 mls/hr IV ASDIRECTED [facility] Last Admin: 07/14/20 04:02 Dose: 150 mls/hr Documented by: Ceftriaxone Sodium 1 gm/ (Sodium Chloride) 50 mls @ 100 mls/hr IV Q24H [facility] Last Admin: 07/14/20 20:30 Dose: 100 mls/hr Documented by: Potassium Chloride/Sodium Chloride (Normal Saline With 20 Meq Kcl) 1,000 mls @ 100 mls/hr IV ASDIRECTED [facility] Last Admin: 07/15/20 11:14 Dose: 100 mls/hr Documented by: Piperacillin Sod/Tazobactam (Sod 3.375 gm/ Sodium Chloride) 100 mls @ 200 mls/hr IV Q6H [facility] Last Admin: 07/15/20 18:56 Dose: 200 mls/hr Documented by: Insulin Glargine (Lantus) 10 unit SUBCUT BEDTIME [facility] Last Admin: 07/13/20 22:05 Dose: Not Given Documented by: Insulin Human Lispro (Humalog) 0 unit SUBCUT Q4H PRN; Protocol PRN Reason: per protocol Last Admin: 07/15/20 04:11 Dose: 2 units Documented by: Insulin Human NPH (Humulin N) 15 unit SQ ONETIME ONE Stop: 07/14/20 11:59 Last Admin: 07/14/20 13:21 Dose: 15 unit Documented by: Insulin Human Regular (Humulin R) 8 unit IV ONETIME ONE Stop: 07/13/20 17:21 Last Admin: 07/13/20 17:32 Dose: 8 units Documented by: Iopamidol (Isovue-300 (61%)) 100 ml IVPUSH ONETIME ONE Stop: 07/15/20 11:20 Last Admin: 07/15/20 11:38 Dose: 100 ml Documented by: Magnesium Oxide (Magnesium Oxide) 500 mg PO BIDMEALS [facility] Stop: 07/14/20 18:01 Last Admin: 07/14/20 19:17 Dose: 500 mg Documented by: Magnesium Oxide (Magnesium Oxide) 250 mg PO BIDMEALS [facility] Stop: 07/15/20 18:01 Last Admin: 07/15/20 17:11 Dose: 250 mg Documented by: Ondansetron HCl (Zofran) 4 mg IV ONETIME ONE Stop: 07/13/20 17:21 Last Admin: 07/13/20 17:30 Dose: 4 mg Documented by: Ondansetron HCl (Zofran Odt) 4 mg PO Q6H PRN PRN Reason: nausea, able to take PO Ondansetron HCl (Zofran) 4 mg IVPUSH Q4H PRN PRN Reason: Nausea/Vomiting Potassium Chloride (Klor-Con 10) 40 meq PO Q6H [facility] Stop: 07/14/20 02:01 Last Admin: 07/14/20 01:44 Dose: 40 meq Documented by: Potassium Chloride (Klor-Con 10) 40 meq PO BIDMEALS [facility] Stop: 07/15/20 18:01 Last Admin: 07/15/20 17:12 Dose: 40 meq Documented by: Sodium Phosphate (Neutra-Phos) 500 mg PO TID [facility] Stop: 07/14/20 21:01 Last Admin: 07/14/20 21:31 Dose: 500 mg Documented by: - Exam General: Reports: Alert, Oriented Neck: Reports: Supple Lungs: Reports: Clear to Auscultation, Normal Respiratory Effort Cardiovascular: Reports: Regular Rate, Regular Rhythm GI/Abdominal Exam: Soft, No Distention, Tender (left lower q). No: Rigid, Rebound Extremities: No Pedal Edema Skin: Reports: Warm, Dry Psy/Mental Status: Reports: Alert, Normal Affect, Normal Mood
== END 2020-07-16 13:00 | disposition home or self-care (01) | DRG 638 ==
LOC: DL.ED 16:13 → DL.MS 18:38 → UNDOADMIN 19:15
PROVIDERS: ADMIT Internal Medicine; ATTEND Internal Medicine
DX: E10.10 Type 1 diabetes mellitus with ketoacidosis without coma (principal); B37.0 Candidal stomatitis; N39.0 Urinary tract infection, site not specified; B37.3 Candidiasis of vulva and vagina; F15.10 Other stimulant abuse, uncomplicated; F17.210 Nicotine dependence, cigarettes, uncomplicated; Z79.899 Other long term (current) drug therapy; E87.6 Hypokalemia
CPT/HCPCS: 36415; 36600; 71045; 74177; 80048; 80053; 80305-QW; 80307; 81001; 82009; 82150; 82803; 82962; 83605; 83690; 83735; 84100; 84484; 85025; 87040; 87086; 87088; 87186; 87493; 93005; 96361; 96374; 99285-25; A9270-GY; J0696; J1644; J1815; J1815-GY; J2405; J2543; J2765; J3010; J3480; J7030; J7042; J7050; Q9967

== ENCOUNTER 2021-01-07 15:03 | Emergency (ER) | payer MEDICAID ==
[2021-01-07 15:30] VITALS: BP 146/73; PULSE 95
[2021-01-07 15:57] LABS: ANION GAP 15.6 mEq/L (7-13); CHLORIDE,CL 104 mmol/L (98-107); SODIUM,NA 142 mmol/L (136-145)
--- NOTE | 2021-01-07 15:58 | CR ---
PROCEDURE INFORMATION: Exam: XR Chest Exam date and time: 01/07/2021 3:43 PM Age: 55 years old Clinical indication: Cough and dyspnea; Additional info: Chest pain TECHNIQUE: Imaging protocol: XR of the chest Views: 1 view. COMPARISON: CR Chest 1V Frontal 07/13/2020 5:56 PM FINDINGS: Lungs: Patchy right infrahilar infiltrate. Correlate with CT. Pleural spaces: Unremarkable. No pleural effusion. No pneumothorax. Heart/Mediastinum: Unremarkable. No cardiomegaly. Diaphragm: Elevation of the right hemidiaphragm. Bones/joints: Cervical spine fusion. IMPRESSION: Patchy right infrahilar infiltrate. Elevation of the right hemidiaphragm.
[2021-01-07] MEDS ORDERED: Albuterol/Ipratropium 3.0-0.5 MG/3 ML Neb Soln NEB ONE (17:10)
[2021-01-07] MEDS ORDERED: Azithromycin 250 MG Tab PO ONE (17:10)
[2021-01-07] MEDS ORDERED: Acetaminophen 325 MG Tab PO ONE (17:16)
--- NOTE | 2021-01-07 18:18 | EDM.PDOC ---
Scribed by Shruti Lopez 01/07/21 [id number] for Bina Stewart NP ED HPI GENERAL MEDICAL PROBLEM - General Chief Complaint: Respiratory Problem Stated Complaint: HARD TO BREATH, CONGESTED Time Seen by Provider: 01/07/21 15:18 Source of Information: Reports: Patient, RN, RN Notes Reviewed History Limitations: Reports: No Limitations - History of Present Illness INITIAL COMMENTS - FREE TEXT/NARRATIVE: Patient is a 55-year-old female who presents to ER with complaint of hard time breathing that began yesterday, thought she had a cold. She complains of back pain (left flank) pain since yesterday and decreased urine output. No frequency, urgency or burning with urination. Denies having COVID. States she was tested on Friday and was negative. She is a smoker 1/2 pack a day. She has a productive cough, chills, diarrhea, and runny nose. No fever, nausea or vomiting. Onset: Gradual Onset Date: 01/06/21 Duration: Getting Worse Location: Reports: Back Quality: Reports: Ache Severity: Moderate Improves with: Reports: None Worsens with: Reports: None Associated Symptoms: Reports: No Other Symptoms - Related Data Allergies Allergy/AdvReac Type Severity Reaction Status Date / Time No Known Allergies Allergy Verified 01/07/21 15:56 Home Meds: Home Meds Acetaminophen [Tylenol] 325 mg PO Q4H PRN 07/13/20 [History] Amoxicillin/Potassium Clav [Augmentin 500-125 Tablet] 1 each PO TID #21 tablet 07/16/20 [Rx] Insulin Glarg,Human.Rec.Analog [Lantus] 20 unit SUBCUT BEDTIME #1 pen 07/16/20 [Rx] Lidocaine 5% [Lidoderm 5%] 700 mg TOP DAILY #6 patch 07/16/20 [Rx] Pantoprazole [ProTONIX] 40 mg PO DAILY #30 tab.cr 07/16/20 [Rx] Past Medical History - Past Health History Medical/Surgical History: Denies Medical/Surgical History HEENT History: Reports: Other (See Below) Other HEENT History: wears glasses Cardiovascular History: Reports: None Respiratory History: Reports: None Genitourinary History: Reports: None CUSTODIAL ENGINEER History: Reports: None Musculoskeletal History: Reports: Arthritis Neurological History: Reports: None Psychiatric History: Reports: Anxiety Endocrine/Metabolic History: Reports: Diabetes, Type II Hematologic History: Reports: None Immunologic History: Reports: None Oncologic (Cancer) History: Reports: None Dermatologic History: Reports: None - Infectious Disease History Infectious Disease History: Reports: Chicken Pox - Past Surgical History Head Surgeries/Procedures: Reports: None GI Surgical History: Reports: Cholecystectomy Social & Family History - Family History Family Medical History: No Pertinent Family History - Caffeine Use Caffeine Use: Reports: None - Living Situation & Occupation Living situation: Reports: with Family ED ROS GENERAL - Review of Systems Review Of Systems: Comprehensive ROS is negative, except as noted in HPI. ED EXAM, GENERAL - Physical Exam Exam: See Below Exam Limited By: No Limitations General Appearance: Alert, WD/WN, No Apparent Distress Eye Exam: Bilateral Eye: EOMI, Normal Inspection, PERRL Ears: Normal External Exam, Normal Canal, Hearing Grossly Normal, Normal TMs Nose: Normal Inspection, Normal Mucosa, No Blood Throat/Mouth: Normal Inspection, Normal Lips, Normal Teeth, Normal Gums, Normal Oropharynx, Normal Voice, No Airway Compromise Head: Atraumatic, Normocephalic Neck: Normal Inspection, Supple, Non-Tender, Full Range of Motion Respiratory/Chest: Decreased Breath Sounds, Crackles, Wheezing Cardiovascular: Normal Peripheral Pulses, Regular Rate, Rhythm, No Edema, No Gallop, No JVD, No Murmur, No Rub GI/Abdominal: Other (left CVA tenderness) (Female) Exam: Deferred Rectal (Female) Exam: Deferred Back Exam: CVA Tenderness (L) Extremities: Normal Inspection, Normal Range of Motion, Non-Tender, Normal Capillary Refill, No Pedal Edema Neurological: Alert, Oriented, CN II-XII Intact, Normal Cognition, Normal Gait, Normal Reflexes, No Motor/Sensory Deficits Psychiatric: Normal Affect, Normal Mood Skin Exam: Warm, Dry, Intact, Normal Color, No Rash Lymphatic: No Adenopathy Course - Vital Signs Last Recorded V/S: Last Vital Signs Temp 97.0 F 01/07/21 15:29 Pulse 95 01/07/21 15:29 Resp 13 01/07/21 15:29 BP 146/73 H 01/07/21 15:29 Pulse Ox 94 L 01/07/21 15:29 - Orders/Labs/Meds Orders: Active Orders 24 hr Category Date Time Status CULTURE BLOOD [BC] Stat Lab 01/07/21 15:27 Received CULTURE BLOOD [BC] Stat Lab 01/07/21 15:27 Received Blood Culture x2 Reflex Set [OM.PC] Stat Oth 01/07/21 15:13 Ordered Labs: Laboratory Tests 01/07/21 01/07/21 01/07/21 Range/Units 15:27 15:27 15:27 WBC 8.8 (5.0-10.0) 10^3/uL RBC 4.37 (4.2-5.4) 10^6/uL Hgb 13.8 D (12.0-16.0) g/dL Hct 40.0 (37.0-47.0) % MCV 91.5 (80-100) fL MCH 31.6 (27.0-34.0) pg MCHC 34.5 (33.0-35.0) g/dL Plt Count 295 D (150-450) 10^3/uL Neut % (Auto) 54.0 (42.2-75.2) % Lymph % (Auto) 38.9 (20.5-50.1) % [place] % (Auto) 5.2 (2-8) % Eos % (Auto) 1.4 (1.0-3.0) % Baso % (Auto) 0.5 (0.0-1.0) % PT 9.3 (9.0-12.0) SEC INR 1.0 (0.9-1.2) D-Dimer, Quantitative 212 (0-400) ng/mL Sodium 142 (136-145) mmol/L Potassium 3.6 (3.5-5.1) mmol/L Chloride 104 (98-107) mmol/L Carbon Dioxide 26 (21-32) mmol/L Anion Gap 15.6 H (7-13) mEq/L BUN 12 (7-18) mg/dL Creatinine 0.98 (0.55-1.02) mg/dL Est Cr Clr Drug Dosing 54.29 mL/min Estimated GFR (MDRD) 59 BUN/Creatinine Ratio 12.2 (No establ ref range) Glucose 152 H (74-99) mg/dL Lactic Acid (0.4-2.0) mmol/L Calcium 8.3 L (8.5-10.1) mg/dL Total Bilirubin 0.2 (0.2-1.0) mg/dL AST 14 L (15-37) U/L ALT 28 (14-59) U/L Alkaline Phosphatase 117 H (46-116) U/L Troponin I < 0.017 (0.000-0.056) ng/mL B-Natriuretic Peptide 22 (0-100) pg/ml Total Protein 7.1 (6.4-8.2) g/dL Albumin 3.3 L (3.4-5.0) g/dL Globulin 3.8 Albumin/Globulin Ratio 0.87 Urine Color (YELLOW) Urine Appearance (CLEAR) Urine pH (5.0-9.0) Ur Specific [place] (1.005-1.030) Urine Protein (NEGATIVE) Urine Glucose (UA) (NEGATIVE) Urine Ketones (NEGATIVE) Urine Occult Blood (NEGATIVE) Urine Nitrite (NEGATIVE) Urine Bilirubin (NEGATIVE) Urine Urobilinogen (0.2-1.0) mg/dL Ur Leukocyte Esterase (NEGATIVE) Urine RBC /HPF Urine WBC (0-5/HPF) /HPF Ur Epithelial Cells (NOT SEEN) /HPF Urine Bacteria (0-FEW/HPF) /HPF Urine Mucus (NOT SEEN) /LPF 01/07/21 01/07/21 Range/Units 15:27 16:01 WBC (5.0-10.0) 10^3/uL RBC (4.2-5.4) 10^6/uL Hgb (12.0-16.0) g/dL Hct (37.0-47.0) % MCV (80-100) fL MCH (27.0-34.0) pg MCHC (33.0-35.0) g/dL Plt Count (150-450) 10^3/uL Neut % (Auto) (42.2-75.2) % Lymph % (Auto) (20.5-50.1) % [place] % (Auto) (2-8) % Eos % (Auto) (1.0-3.0) % Baso % (Auto) (0.0-1.0) % PT (9.0-12.0) SEC INR (0.9-1.2) D-Dimer, Quantitative (0-400) ng/mL Sodium (136-145) mmol/L Potassium (3.5-5.1) mmol/L Chloride (98-107) mmol/L Carbon Dioxide (21-32) mmol/L Anion Gap (7-13) mEq/L BUN (7-18) mg/dL Creatinine (0.55-1.02) mg/dL Est Cr Clr Drug Dosing mL/min Estimated GFR (MDRD) BUN/Creatinine Ratio (No establ ref range) Glucose (74-99) mg/dL Lactic Acid 0.9 (0.4-2.0) mmol/L Calcium (8.5-10.1) mg/dL Total Bilirubin (0.2-1.0) mg/dL AST (15-37) U/L ALT (14-59) U/L Alkaline Phosphatase (46-116) U/L Troponin I (0.000-0.056) ng/mL B-Natriuretic Peptide (0-100) pg/ml Total Protein (6.4-8.2) g/dL Albumin (3.4-5.0) g/dL Globulin Albumin/Globulin Ratio Urine Color Yellow (YELLOW) Urine Appearance Slightly cloudy (CLEAR) Urine pH 6.0 (5.0-9.0) Ur Specific [place] >= 1.030 (1.005-1.030) Urine Protein Trace H (NEGATIVE) Urine Glucose (UA) Negative (NEGATIVE) Urine Ketones Negative (NEGATIVE) Urine Occult Blood Trace-intact H (NEGATIVE) Urine Nitrite Negative (NEGATIVE) Urine Bilirubin Negative (NEGATIVE) Urine Urobilinogen 0.2 (0.2-1.0) mg/dL Ur Leukocyte Esterase Negative (NEGATIVE) Urine RBC 5-10 H /HPF Urine WBC 0-5 (0-5/HPF) /HPF Ur Epithelial Cells Few (NOT SEEN) /HPF Urine Bacteria Rare (0-FEW/HPF) /HPF Urine Mucus Few H (NOT SEEN) /LPF Meds: Medications Discontinued Medications Generic Name Dose Route Start Last Admin Trade Name Freq PRN Reason Stop Dose Admin Acetaminophen 650 mg 01/07/21 17:16 01/07/21 17:19 Tylenol PO 01/07/21 17:17 650 mg NOW ONE Administration Albuterol/Ipratropium 3 ml 01/07/21 17:10 01/07/21 17:18 Duoneb 3.0-0.5 Mg/3 Ml NEB 01/07/21 17:11 3 ml ONETIME ONE Administration Azithromycin 500 mg 01/07/21 17:10 01/07/21 17:18 Zithromax PO 01/07/21 17:11 500 mg ONETIME ONE Administration - Radiology Interpretation Free Text/Narrative:: Chest x-ray: PROCEDURE INFORMATION: Exam: XR Chest Exam date and time: 01/07/2021 3:43 PM Age: 55 years old Clinical indication: Cough and dyspnea; Additional info: Chest pain TECHNIQUE: Imaging protocol: XR of the chest Views: 1 view. COMPARISON: CR Chest 1V Frontal 07/13/2020 5:56 PM FINDINGS: Lungs: Patchy right infrahilar infiltrate. Correlate with CT. Pleural spaces: Unremarkable. No pleural effusion. No pneumothorax. Heart/Mediastinum: Unremarkable. No cardiomegaly. Diaphragm: Elevation of the right hemidiaphragm. Bones/joints: Cervical spine fusion. IMPRESSION: Patchy right infrahilar infiltrate. Elevation of the right hemidiaphragm. Thank you for allowing us to participate in the care of your patient. See x-ray report. Departure - Departure Time of Disposition: 16:56 Disposition: Home, Self-Care 01 Condition: Fair Clinical Impression: Pneumonia Qualifiers: Pneumonia type: due to unspecified organism Laterality: right Lung location: unspecified part of lung Qualified Code(s): J18.9 - Pneumonia, unspecified organism - Discharge Information *PRESCRIPTION DRUG MONITORING PROGRAM REVIEWED*: No *COPY OF PRESCRIPTION DRUG MONITORING REPORT IN PATIENT [place]: No Instructions: Steps to Quit Smoking, [id number], Community-Acquired Pneumonia, Adult, [id number] Forms: ED Department Discharge Additional Instructions: RX: Azithromycin, Tessalon Perles, Albuterol Inhaler, Flexeril Follow up with your primary care facility if no improvement Stop smoking Sepsis Event Note (ED) - Focused Exam Vital Signs: Vital Signs Temp Pulse Resp BP Pulse Ox 01/07/21 15:29 97.0 F 95 13 146/73 H 94 L - My Orders Last 24 Hours: My Active Orders 01/07/21 15:13 Blood Culture x2 Reflex Set [OM.PC] Stat 01/07/21 15:27 CULTURE BLOOD [BC] Stat CULTURE BLOOD [BC] Stat - Assessment/Plan Last 24 Hours: My Active Orders 01/07/21 15:13 Blood Culture x2 Reflex Set [OM.PC] Stat 01/07/21 15:27 CULTURE BLOOD [BC] Stat CULTURE BLOOD [BC] Stat I have read and agree with the documentation that has been completed regarding this visit. By signing this record, I attest that the documentation was completed in my physical presence and is an accurate record of the encounter.
== END 2021-01-07 17:25 | disposition home or self-care (01) ==
LOC: DL.ED 15:03
DX: J18.9 Pneumonia, unspecified organism (principal); E11.9 Type 2 diabetes mellitus without complications; F17.200 Nicotine dependence, unspecified, uncomplicated; Z79.4 Long term (current) use of insulin
CPT/HCPCS: 36415; 71045; 80053; 81001; 83605; 83880; 84484; 85025; 85379; 85610; 87040; 93005; 99284; 99285; A9270; J7620-GY

== ENCOUNTER 2021-08-24 14:43 | Emergency (ER) | payer MEDICAID ==
[2021-08-24 16:26] VITALS: BP 145/77; PULSE 70
--- NOTE | 2021-08-24 18:30 | EDM.PDOC ---
<Richie Alva - Last Filed: 08/24/21 21:29> ED HPI GENERAL MEDICAL PROBLEM - General Chief Complaint: Diabetic Complaint Stated Complaint: BLOOD SUGAR, SENT BY [facility] Time Seen by Provider: 08/24/21 18:10 - Related Data Allergies Allergy/AdvReac Type Severity Reaction Status Date / Time No Known Allergies Allergy Verified 08/24/21 16:22 Home Meds: Home Meds Acetaminophen [Tylenol] 325 mg PO Q4H PRN 07/13/20 [History] Amoxicillin/Potassium Clav [Augmentin 500-125 Tablet] 1 each PO TID #21 tablet 07/16/20 [Rx] Insulin Glarg,Human.Rec.Analog [Lantus] 20 unit SUBCUT BEDTIME #1 pen 07/16/20 [Rx] Lidocaine 5% [Lidoderm 5%] 700 mg TOP DAILY #6 patch 07/16/20 [Rx] Pantoprazole [ProTONIX] 40 mg PO DAILY #30 tab.cr 07/16/20 [Rx] ED EYE PROCEDURE - Eye Procedure Alcaine Drops Administered: Yes Eye FB Removal: no Removal w/ Cotton Swab, no Removal w/ Needle, no Other Antibiotic Oinment/Drps Admin: Right Eye Departure - Departure Time of Disposition: 21:29 Disposition: Home, Self-Care 01 Condition: Fair Clinical Impression: Hyperglycemia Conjunctivitis, right eye Qualifiers: Conjunctivitis type: acute Acute conjunctivitis type: unspecified Qualified Code(s): H10.31 - Unspecified acute conjunctivitis, right eye - Discharge Information Instructions: Hyperglycemia, [id number] Forms: ED Department Discharge Care Plan Goals: The patient was advised of the examination, lab and CT results during the visit. The patient was given an injection of insulin, Polytrim drops for her right eye and Tylenol for her back pain while in the ED. The patient was discharged with Polytrim to place 1 drop in her right eye 4 times per day for 10 days and a script for Lantus (100 units/mL) #1 vial to inject 15 units SQ at bedtime daily. The patient should follow-up with her primary care facility next week for continued evaluation and management. If the patient has any additional symptoms or concerns, the patient should either return to the emergency department or visit her primary care facility. <Rita Oleary - Last Filed: 08/25/21 11:08> ED HPI GENERAL MEDICAL PROBLEM - General Source of Information: Reports: Patient, RN, RN Notes Reviewed History Limitations: Reports: No Limitations - History of Present Illness INITIAL COMMENTS - FREE TEXT/NARRATIVE: Leslie is a 56 y/o female with a history of uncontrolled DM Type II who presents to the ED at the request of his PCP from [facility] for blurry vision, right eye scleral erythema, muscles aches, and left flank pain. Additionally, the patient reports emesis two days ago and left suprapubic tenderness. The patient states she scheduled an appointment for today as she has been out of her insulin for approximately three months and she has been unable to get it under 300 with diet alone. She denies fever, shaking chills, cough, sore throat, palpitations, dyspepsia, dysuria, hematuria, constipation, diarrhea, hematochezia, or melena. She has taken 2 800mg tabs of ibuprofen two days ago for generalized pain, shortly thereafter her left flank pain began. She denies tobacco, alcohol, or recreational drug use. Left Lower Back Pain Score (Numeric/FACES): 5 Past Medical History - Past Health History Medical/Surgical History: Denies Medical/Surgical History HEENT History: Reports: Impaired Vision, Other (See Below) Other HEENT History: wears glasses Cardiovascular History: Reports: None Respiratory History: Reports: None Genitourinary History: Reports: None REPA[employer] History: Reports: None Musculoskeletal History: Reports: Arthritis Neurological History: Reports: None Psychiatric History: Reports: Anxiety Endocrine/Metabolic History: Reports: Diabetes, Type II Hematologic History: Reports: None Immunologic History: Reports: None Oncologic (Cancer) History: Reports: None Dermatologic History: Reports: None - Infectious Disease History Infectious Disease History: Reports: Chicken Pox - Past Surgical History Head Surgeries/Procedures: Reports: None GI Surgical History: Reports: Cholecystectomy Social & Family History - Family History Family Medical History: No Pertinent Family History - Tobacco Use Tobacco Use Status *Q: Current Every Day Tobacco User Years of Tobacco use: 8 Packs/Tins Daily: 0.5 - Caffeine Use Caffeine Use: Reports: Coffee - Recreational Drug Use Recreational Drug Use: No - Living Situation & Occupation Living situation: Reports: with Family ED ROS GENERAL - Review of Systems Review Of Systems: Comprehensive ROS is negative, except as noted in HPI. ED EXAM GENERAL NO PERIP PULSE - Physical Exam Exam: See Below Exam Limited By: No Limitations General Appearance: Alert, No Apparent Distress, Other (Ill-appearing female) Eye Exam: Right Eye: Conjunctival Injection, Bilateral Eye: EOMI, PERRL (3mm), Vision Changes (Blurry vision) Ears: Normal External Exam, Normal Canal, Hearing Grossly Normal. No: Normal TMs (Dull, bilaterally) Nose: Normal Inspection, Normal Mucosa, No Blood Throat/Mouth: Normal Voice, No Airway Compromise. No: Normal Inspection (Dry mucous membranes), Normal Oropharynx (Dry mucous membranes) Head: Atraumatic, Normocephalic Neck: Normal Inspection, Supple, Non-Tender, Full Range of Motion. No: Lymphadenopathy (L), Lymphadenopathy (R) Respiratory/Chest: No Respiratory Distress, Lungs Clear, Normal Breath Sounds, No Accessory Muscle Use, Chest Non-Tender Cardiovascular: Normal Peripheral Pulses, Regular Rate, Rhythm, No Edema, No Gallop, No JVD, No Murmur, No Rub GI/Abdominal: Normal Bowel Sounds, Soft, Non-Tender, No Distention, No Abnormal Bruit, No Mass, Pelvis Stable (Female) Exam: Deferred Rectal (Female) Exam: Deferred Back Exam: CVA Tenderness (L). No: CVA Tenderness (R) Extremities: Normal Inspection, Normal Range of Motion, Normal Capillary Refill Neurological: Alert, Oriented, CN II-XII Intact, Normal Cognition, Normal Gait, No Motor/Sensory Deficits Psychiatric: Normal Affect, Normal Mood Skin Exam: Warm, Dry, Intact, Normal Color, No Rash. No: Cyanosis, Jaundice, Mottled, Pallor #1 Interpretation EKG Date: 08/24/21 Time: 18:13 Rhythm: NSR Rate (Beats/Min): 65 Newton: LAD-Left Newton Deviation P-Wave: Present QRS: Normal ST-T: Normal QT: Normal DC/PQ Interval: 0.135 Comparison: No Change EKG Interpretation Comments: NSR; LAD; q-wave in V1 and V2; No evidence of acute myocardial ischemia Course - Vital Signs Last Recorded V/S: Last Vital Signs Temp 98.1 F 08/24/21 16:23 Pulse 70 08/24/21 16:23 Resp 18 08/24/21 16:23 BP 145/77 H 08/24/21 16:23 Pulse Ox 97 10/15/21 16:23 - Orders/Labs/Meds Labs: Laboratory Tests 08/24/21 08/24/21 08/24/21 Range/Units 16:22 16:22 16:23 WBC (5.0-10.0) 10^3/uL RBC (4.2-5.4) 10^6/uL Hgb (12.0-16.0) g/dL Hct (37.0-47.0) % MCV (80-100) fL MCH (27.0-34.0) pg MCHC (33.0-35.0) g/dL Plt Count (150-450) 10^3/uL Neut % (Auto) (42.2-75.2) % Lymph % (Auto) (20.5-50.1) % Young % (Auto) (2-8) % Eos % (Auto) (1.0-3.0) % Baso % (Auto) (0.0-1.0) % Sodium (136-145) mmol/L Potassium (3.5-5.1) mmol/L Chloride (98-107) mmol/L Carbon Dioxide (21-32) mmol/L Anion Gap (7-13) mEq/L BUN (7-18) mg/dL Creatinine (0.55-1.02) mg/dL Est Cr Clr Drug Dosing mL/min Estimated GFR (MDRD) BUN/Creatinine Ratio (No establ ref range) Glucose (70-99) mg/dL POC Glucose 311 H (70-99) mg/dL Lactic Acid (0.4-2.0) mmol/L Calcium (8.5-10.1) mg/dL Magnesium (1.8-2.4) mg/dL Total Bilirubin (0.2-1.0) mg/dL AST (15-37) U/L ALT (14-59) U/L Alkaline Phosphatase (46-116) U/L Troponin I High Sens (<=51) pg/mL C-Reactive Protein (0.0-0.9) mg/dL Total Protein (6.4-8.2) g/dL Albumin (3.4-5.0) g/dL Globulin Albumin/Globulin Ratio Amylase (25-115) U/L Lipase (73-393) U/L Urine Color Yellow (YELLOW) Urine Appearance Clear (CLEAR) Urine pH 7.0 (5.0-9.0) Ur Specific [place] 1.020 (1.005-1.030) Urine Protein Negative (NEGATIVE) Urine Glucose (UA) >=1000 H (NEGATIVE) Urine Ketones Negative (NEGATIVE) Urine Occult Blood Trace-intact H (NEGATIVE) Urine Nitrite Negative (NEGATIVE) Urine Bilirubin Negative (NEGATIVE) Urine Urobilinogen 0.2 (0.2-1.0) mg/dL Ur Leukocyte Esterase Negative (NEGATIVE) Urine RBC 0-5 (0-5) /HPF Urine WBC 0-5 (0-5/HPF) /HPF Ur Epithelial Cells Moderate H (NOT SEEN) /HPF Amorphous Sediment (NOT SEEN) /HPF Urine Bacteria Few (0-FEW/HPF) /HPF Urine Mucus (NOT SEEN) /LPF Urine Opiates Screen Negative (NEGATIVE) Ur Oxycodone Screen Negative (NEGATIVE) Urine Methadone Screen Negative (NEGATIVE) Ur Barbiturates Screen Negative (NEGATIVE) U Tricyclic Antidepress Negative (NEGATIVE) Ur Phencyclidine Scrn Negative (NEGATIVE) Ur Amphetamine Screen Negative (NEGATIVE) U Methamphetamines Scrn Negative (NEGATIVE) Urine MDMA Screen Negative (NEGATIVE) U Benzodiazepines Scrn Negative (NEGATIVE) Urine Cocaine Screen Negative (NEGATIVE) U Marijuana (THC) Screen Positive H (NEGATIVE) Ethyl Alcohol (0) mg/dL Ketones SARS-CoV-2 RNA (SAMINA) (NEGATIVE) 08/24/21 08/24/21 08/24/21 Range/Units 16:32 18:05 18:05 WBC 7.8 (5.0-10.0) 10^3/uL RBC 4.45 (4.2-5.4) 10^6/uL Hgb 13.5 (12.0-16.0) g/dL Hct 39.6 (37.0-47.0) % MCV 89.0 (80-100) fL MCH 30.3 (27.0-34.0) pg MCHC 34.1 (33.0-35.0) g/dL Plt Count 237 (150-450) 10^3/uL Neut % (Auto) 60.7 (42.2-75.2) % Lymph % (Auto) 33.3 (20.5-50.1) % Young % (Auto) 4.6 (2-8) % Eos % (Auto) 1.0 (1.0-3.0) % Baso % (Auto) 0.4 (0.0-1.0) % Sodium 139 (136-145) mmol/L Potassium 4.0 (3.5-5.1) mmol/L Chloride 103 (98-107) mmol/L Carbon Dioxide 24 (21-32) mmol/L Anion Gap 16.0 H (7-13) mEq/L BUN 13 (7-18) mg/dL Creatinine 0.86 (0.55-1.02) mg/dL Est Cr Clr Drug Dosing 58.46 mL/min Estimated GFR (MDRD) > 60 BUN/Creatinine Ratio 15.1 (No establ ref range) Glucose 366 H (70-99) mg/dL POC Glucose (70-99) mg/dL Lactic Acid (0.4-2.0) mmol/L Calcium 8.6 (8.5-10.1) mg/dL Magnesium 1.7 L (1.8-2.4) mg/dL Total Bilirubin 0.2 (0.2-1.0) mg/dL AST 9 L (15-37) U/L ALT 31 (14-59) U/L Alkaline Phosphatase 150 H (46-116) U/L Troponin I High Sens 4 (<=51) pg/mL C-Reactive Protein < 0.2 (0.0-0.9) mg/dL Total Protein 7.0 (6.4-8.2) g/dL Albumin 3.4 (3.4-5.0) g/dL Globulin 3.6 Albumin/Globulin Ratio 0.9 Amylase 31 (25-115) U/L Lipase 166 (73-393) U/L Urine Color Yellow (YELLOW) Urine Appearance Slightly cloudy (CLEAR) Urine pH 7.0 (5.0-9.0) Ur Specific [place] 1.025 (1.005-1.030) Urine Protein Negative (NEGATIVE) Urine Glucose (UA) 500 H (NEGATIVE) Urine Ketones Negative (NEGATIVE) Urine Occult Blood Trace-lysed H (NEGATIVE) Urine Nitrite Negative (NEGATIVE) Urine Bilirubin Negative (NEGATIVE) Urine Urobilinogen 0.2 (0.2-1.0) mg/dL Ur Leukocyte Esterase Negative (NEGATIVE) Urine RBC 5-10 H (0-5) /HPF Urine WBC 0-5 (0-5/HPF) /HPF Ur Epithelial Cells Few (NOT SEEN) /HPF Amorphous Sediment Rare (NOT SEEN) /HPF Urine Bacteria Rare (0-FEW/HPF) /HPF Urine Mucus Rare (NOT SEEN) /LPF Urine Opiates Screen (NEGATIVE) Ur Oxycodone Screen (NEGATIVE) Urine Methadone Screen (NEGATIVE) Ur Barbiturates Screen (NEGATIVE) U Tricyclic Antidepress (NEGATIVE) Ur Phencyclidine Scrn (NEGATIVE) Ur Amphetamine Screen (NEGATIVE) U Methamphetamines Scrn (NEGATIVE) Urine MDMA Screen (NEGATIVE) U Benzodiazepines Scrn (NEGATIVE) Urine Cocaine Screen (NEGATIVE) U Marijuana (THC) Screen (NEGATIVE) Ethyl Alcohol < 3 (0) mg/dL Ketones Negative SARS-CoV-2 RNA (SAMINA) (NEGATIVE) 08/24/21 08/24/21 08/24/21 Range/Units 18:05 18:47 19:49 WBC (5.0-10.0) 10^3/uL RBC (4.2-5.4) 10^6/uL Hgb (12.0-16.0) g/dL Hct (37.0-47.0) % MCV (80-100) fL MCH (27.0-34.0) pg MCHC (33.0-35.0) g/dL Plt Count (150-450) 10^3/uL Neut % (Auto) (42.2-75.2) % Lymph % (Auto) (20.5-50.1) % Young % (Auto) (2-8) % Eos % (Auto) (1.0-3.0) % Baso % (Auto) (0.0-1.0) % Sodium (136-145) mmol/L Potassium (3.5-5.1) mmol/L Chloride (98-107) mmol/L Carbon Dioxide (21-32) mmol/L Anion Gap (7-13) mEq/L BUN (7-18) mg/dL Creatinine (0.55-1.02) mg/dL Est Cr Clr Drug Dosing mL/min Estimated GFR (MDRD) BUN/Creatinine Ratio (No establ ref range) Glucose (70-99) mg/dL POC Glucose 283 H (70-99) mg/dL Lactic Acid 1.7 (0.4-2.0) mmol/L Calcium (8.5-10.1) mg/dL Magnesium (1.8-2.4) mg/dL Total Bilirubin (0.2-1.0) mg/dL AST (15-37) U/L ALT (14-59) U/L Alkaline Phosphatase (46-116) U/L Troponin I High Sens (<=51) pg/mL C-Reactive Protein (0.0-0.9) mg/dL Total Protein (6.4-8.2) g/dL Albumin (3.4-5.0) g/dL Globulin Albumin/Globulin Ratio Amylase (25-115) U/L Lipase (73-393) U/L Urine Color (YELLOW) Urine Appearance (CLEAR) Urine pH (5.0-9.0) Ur Specific [place] (1.005-1.030) Urine Protein (NEGATIVE) Urine Glucose (UA) (NEGATIVE) Urine Ketones (NEGATIVE) Urine Occult Blood (NEGATIVE) Urine Nitrite (NEGATIVE) Urine Bilirubin (NEGATIVE) Urine Urobilinogen (0.2-1.0) mg/dL Ur Leukocyte Esterase (NEGATIVE) Urine RBC (0-5) /HPF Urine WBC (0-5/HPF) /HPF Ur Epithelial Cells (NOT SEEN) /HPF Amorphous Sediment (NOT SEEN) /HPF Urine Bacteria (0-FEW/HPF) /HPF Urine Mucus (NOT SEEN) /LPF Urine Opiates Screen (NEGATIVE) Ur Oxycodone Screen (NEGATIVE) Urine Methadone Screen (NEGATIVE) Ur Barbiturates Screen (NEGATIVE) U Tricyclic Antidepress (NEGATIVE) Ur Phencyclidine Scrn (NEGATIVE) Ur Amphetamine Screen (NEGATIVE) U Methamphetamines Scrn (NEGATIVE) Urine MDMA Screen (NEGATIVE) U Benzodiazepines Scrn (NEGATIVE) Urine Cocaine Screen (NEGATIVE) U Marijuana (THC) Screen (NEGATIVE) Ethyl Alcohol (0) mg/dL Ketones SARS-CoV-2 RNA (SAMINA) Negative (NEGATIVE) Meds: Medications Discontinued Medications Generic Name Dose Route Start Last Admin Trade Name Freq PRN Reason Stop Dose Admin Acetaminophen 650 mg 08/24/21 21:28 08/24/21 21:42 Acetaminophen 325 Mg Tab PO 08/24/21 21:29 Not Given NOW ONE Dextrose/Water 50 ml 08/24/21 18:40 50% Dextrose In Water 50 Ml Syringe IVPUSH Q15M PRN Hypoglycemia Fluorescein Sodium 1 mg 08/24/21 18:41 08/24/21 19:16 Fluorescein 1 Mg Ophth Strip EYERT 08/24/21 18:42 1 mg ONETIME ONE Administration Glucagon 1 mg 08/24/21 18:40 Glucagon,Human Recombinant 1 Mg Vial IM Q15M PRN Hypoglycemia Sodium Chloride 1,000 mls @ 999 mls/hr 08/24/21 18:40 08/24/21 19:16 Normal Saline IV 08/24/21 19:40 999 mls/hr .BOLUS ONE Administration Insulin Human Lispro 5 unit 08/24/21 18:40 08/24/21 19:15 Insulin Lispro 100 Units/Ml 3 Ml Vial SUBCUT 08/24/21 18:41 5 unit ONETIME ONE Administration Polymyxin/Trimethoprim Sulfate 1 ml 08/24/21 21:04 08/24/21 21:36 Polymyxin B/Trimethoprim 10 Ml Bottle EYERT 08/24/21 21:05 1 drop ONETIME ONE Administration Tetracaine HCl 1 ml 08/24/21 18:41 08/24/21 19:16 Tetracaine Hcl/Pf 0.5% 4 Ml Bottle EYERT 08/24/21 18:42 1 dose ASDIRECTED ONE Administration - Re-Assessments/Exams Free Text/Narrative Re-Assessment/Exam: 08/24/21 COVID test sent. Care of patient transferred to Rigoberto Alva PA-C at 1900. Sepsis Event Note (ED) - Evaluation Sepsis Screening Result: No Definite Risk
[2021-08-24] MEDS ORDERED: Sodium Chloride 0.9% 1,000 ML IV ONE (18:40)
[2021-08-24] MEDS ORDERED: Insulin Lispro 100 Units/ML 3 ML Vial SUBCUT ONE (18:40)
[2021-08-24] MEDS ORDERED: Glucagon,Human Recombinant 1 MG Vial IM PRN (18:40)
[2021-08-24] MEDS ORDERED: 50% Dextrose in Water 50 ML Syringe IVPUSH PRN (18:40)
[2021-08-24] MEDS ORDERED: Fluorescein 1 MG Ophth Strip EYERT ONE (18:41)
[2021-08-24] MEDS ORDERED: Tetracaine HCl/PF 0.5% 4 ML Bottle EYERT ONE (18:41)
[2021-08-24 18:44] LABS: CHLORIDE,CL 103 mmol/L (98-107); SODIUM,NA 139 mmol/L (136-145)
[2021-08-24 20:25] LABS: AMPHETAMINES,URINE NEGATIVE (NEGATIVE); BARBITURATES,URINE NEGATIVE (NEGATIVE); BENZODIAZEPINE,URINE NEGATIVE (NEGATIVE); MDMA (ECSTASY), URINE NEGATIVE (NEGATIVE); METHADONE,URINE NEGATIVE (NEGATIVE); METHAMPHETAMINES,URINE NEGATIVE (NEGATIVE); OPIATES,URINE NEGATIVE (NEGATIVE); OXYCODONE,URINE NEGATIVE (NEGATIVE); PHENCYCLIDINE,URINE NEGATIVE (NEGATIVE); TCA,URINE NEGATIVE (NEGATIVE)
[2021-08-24] MEDS ORDERED: Polymyxin B/Trimethoprim 10 ML Bottle EYERT ONE (21:04)
--- NOTE | 2021-08-24 21:08 | CT ---
PROCEDURE INFORMATION: Exam: CT Abdomen And Pelvis Without Contrast Exam date and time: 08/24/2021 7:37 PM Age: 56 years old Clinical indication: Other: HX renal stones; Additional info: L flank pain; R/O renal stone TECHNIQUE: Imaging protocol: Computed tomography of the abdomen and pelvis without contrast. Radiation optimization: All CT scans at this facility use at least one of these dose optimization techniques: automated exposure control; mA and/or kV adjustment per patient size (includes targeted exams where dose is matched to clinical indication); or iterative reconstruction. COMPARISON: CT Abdomen Pelvis w Cont 07/15/2020 11:23 AM FINDINGS: Liver: Diffuse fatty infiltration of the liver. Gallbladder and bile ducts: The patient is status post cholecystectomy.. Pancreas: Normal. No ductal dilation. Spleen: Normal. No splenomegaly. Adrenal glands: Normal. No mass. Kidneys and ureters: Normal. No hydronephrosis. Stomach and bowel: Unremarkable. No obstruction. No mucosal thickening. Appendix: No evidence of appendicitis. Intraperitoneal space: Unremarkable. No free air. No significant fluid collection. Vasculature: Unremarkable. No abdominal aortic aneurysm. Lymph nodes: Unremarkable. No enlarged lymph nodes. Urinary bladder: Unremarkable as visualized. Reproductive: The patient is status post hysterectomy. Bones/joints: Unremarkable. No acute fracture. Soft tissues: Unremarkable. IMPRESSION: No acute abnormality.
[2021-08-24] MEDS ORDERED: Acetaminophen 325 MG Tab PO ONE (21:28)
== END 2021-08-24 21:42 | disposition home or self-care (01) ==
LOC: DL.ED 14:43
DX: H10.31 Unspecified acute conjunctivitis, right eye (principal); E11.65 Type 2 diabetes mellitus with hyperglycemia; Z72.0 Tobacco use; Z20.822 Contact with and (suspected) exposure to COVID-19; Z79.899 Other long term (current) drug therapy; Z79.4 Long term (current) use of insulin
CPT/HCPCS: 36415; 74176; 80053; 80305-QW; 80307; 81001; 82009; 82150; 82947; 83605; 83690; 83735; 84484; 85025; 86140; 99285-25; A9270-GY; J1815-GY; J7030; U0002

== ENCOUNTER 2024-03-11 15:35 | Emergency (ER) | payer MEDICAID, OTHER ==
[2024-03-11 16:11] LABS: BASOPHILS PERCENT AUTO 0.3 % (0.0-1.0); EOSINOPHILS PERCENT AUTO 0.9 % (1.0-3.0); HEMATOCRIT 39.6 % (37.0-47.0); HEMOGLOBIN 13.9 g/dL (12.0-16.0); LYMPHOCYTES PERCENT AUTO 30.3 % (20.5-50.1); MEAN CORPUSCULAR HGB CONC 35.1 g/dL (33.0-35.0); MEAN CORPUSCULAR VOLUME 88.2 fL (80-100); MONOCYTES PERCENT AUTO 3.5 % (2-8); PLATELET COUNT,PLT 216 10^3/uL (150-450); RED BLOOD CELL COUNT 4.49 10^6/uL (4.2-5.4); WHITE BLOOD CELL COUNT,WBC 6.9 10^3/uL (5.0-10.0)
[2024-03-11] MEDS: Sodium Chloride 0.9% 10 ML Syringe FLUSH PRN (16:14)
[2024-03-11 16:35] LABS: ALANINE AMINOTRANSFERASE,ALT 22 U/L (14-59); ALBUMIN 3.5 g/dL (3.4-5.0); ALKALINE PHOSPHATASE 128 U/L (46-116); ASPARTATE AMNIOTRANSFERASE,AST 10 U/L (15-37); BILIRUBIN TOTAL 0.2 mg/dL (0.2-1.0); BLOOD UREA NITROGEN,BUN 13 mg/dL (7-18); BUN/CREATININE RATIO 16.7 (No establ ref range); CALCIUM 8.8 mg/dL (8.5-10.1); CARBON DIOXIDE,CO2 24 mmol/L (21-32); CHLORIDE,CL 105 mmol/L (98-107); CREATININE 0.78 mg/dL (0.55-1.02); EST CRCL DRUG DOSING (CG) 65.83 mL/min; ESTIMATED GFR 89 mL/min (>=60); GLUCOSE RANDOM 260 mg/dL (70-99); LIPASE 46 U/L (16-77); PROTEIN TOTAL,TP 7.1 g/dL (6.4-8.2); SODIUM,NA 140 mmol/L (136-145)
[2024-03-11 16:39] LABS: D-DIMER QUANTITATIVE < 100 ng/mL (0-400); INR 0.9 (0.9-1.2); PROTHROMBIN TIME 9.4 SEC (9.0-12.0); PTT,PARTIAL THROMBOPLSTIN TIME 23.2 SEC (22.0-34.0)
[2024-03-11 16:46] VITALS: BP 117/100; PULSE 64
[2024-03-11] MEDS: Ketorolac 30 MG/ML SDV IVPUSH ONE (17:39)
== END 2024-03-11 17:50 | disposition home or self-care (01) ==
LOC: DL.ED 15:35
DX: M54.12 Radiculopathy, cervical region (principal); R07.9 Chest pain, unspecified; E11.9 Type 2 diabetes mellitus without complications; Z79.4 Long term (current) use of insulin; Z79.899 Other long term (current) drug therapy; Z90.49 Acquired absence of other specified parts of digestive tract
CPT/HCPCS: 36415; 71045; 72040; 80053; 83690; 84484; 85025; 85379; 85610; 85730; 93005; 93010; 96374; 99284; 99285; J1885; J3490

== ENCOUNTER 2024-06-22 11:36 | Emergency (ER) | payer MEDICAID ==
[2024-06-22 11:47] LABS: BASOPHILS PERCENT AUTO 0.6 % (0.0-1.0); EOSINOPHILS PERCENT AUTO 4.1 % (1.0-3.0); HEMATOCRIT 35.9 % (37.0-47.0); HEMOGLOBIN 12.4 g/dL (12.0-16.0); LYMPHOCYTES PERCENT AUTO 28.5 % (20.5-50.1); MEAN CORPUSCULAR HEMOGLOBIN 31.6 pg (27.0-34.0); MEAN CORPUSCULAR HGB CONC 34.5 g/dL (33.0-35.0); MEAN CORPUSCULAR VOLUME 91.6 fL (80-100); MONOCYTES PERCENT AUTO 7.2 % (2-8); NEUTROPHILS PERCENT AUTO 59.6 % (42.2-75.2); PLATELET COUNT,PLT 217 10^3/uL (150-450); RED BLOOD CELL COUNT 3.92 10^6/uL (4.2-5.4); WHITE BLOOD CELL COUNT,WBC 5.4 10^3/uL (5.0-10.0)
[2024-06-22] MEDS: Iopamidol 612 MG/ML 100 ML Bottle IVPUSH ONE (11:55)
[2024-06-22 12:07] LABS: A/G RATIO 1.1; ALBUMIN 3.4 g/dL (3.4-5.0); ANION GAP 15.4 mEq/L (7-13); BILIRUBIN TOTAL 0.4 mg/dL (0.2-1.0); BUN/CREATININE RATIO 22.7 (No establ ref range); CREATININE 0.66 mg/dL (0.55-1.02); EST CRCL DRUG DOSING (CG) 77.79 mL/min; MAGNESIUM 1.7 mg/dL (1.8-2.4); POTASSIUM,K 3.4 mmol/L (3.5-5.1); PROTEIN TOTAL,TP 6.6 g/dL (6.4-8.2)
[2024-06-22] MEDS: LORazepam 2 MG/ML SDV IVPUSH ONE (12:15)
[2024-06-22] MEDS: Sodium Chloride 0.9% 1,000 ML IV ONE (12:16)
[2024-06-22 12:27] VITALS: BP 156/72; PULSE 63
[2024-06-22 13:50] LABS: APPEARANCE,URINE CLEAR (CLEAR); BILIRUBIN,URINE NEGATIVE (NEGATIVE); COLOR,URINE YELLOW (YELLOW); GLUCOSE,URINE 100 (NEGATIVE); KETONES,URINE 15 (NEGATIVE); LEUKOCYTE ESTERASE,URINE NEGATIVE (NEGATIVE); NITRITE,URINE NEGATIVE (NEGATIVE); OCCULT BLOOD,URINE NEGATIVE (NEGATIVE); PH,URINE 6.5 (5.0-9.0); PROTEIN,URINE NEGATIVE (NEGATIVE)
[2024-06-22 13:55] LABS: AMPHETAMINES,URINE POSITIVE (NEGATIVE); BARBITURATES,URINE NEGATIVE (NEGATIVE); BENZODIAZEPINE,URINE NEGATIVE (NEGATIVE); MDMA (ECSTASY), URINE NEGATIVE (NEGATIVE); METHADONE,URINE NEGATIVE (NEGATIVE); METHAMPHETAMINES,URINE POSITIVE (NEGATIVE); OPIATES,URINE NEGATIVE (NEGATIVE); OXYCODONE,URINE NEGATIVE (NEGATIVE); PHENCYCLIDINE,URINE NEGATIVE (NEGATIVE); TCA,URINE NEGATIVE (NEGATIVE)
== END 2024-06-22 14:20 | disposition home or self-care (01) ==
LOC: DL.ED 11:36
DX: S16.1XXA Strain of muscle, fascia and tendon at neck level, initial encounter (principal); R55 Syncope and collapse; F15.90 Other stimulant use, unspecified, uncomplicated; E11.9 Type 2 diabetes mellitus without complications; F17.210 Nicotine dependence, cigarettes, uncomplicated; Z79.899 Other long term (current) drug therapy; Z86.16 Personal history of COVID-19; Z90.49 Acquired absence of other specified parts of digestive tract; W19.XXXA Unspecified fall, initial encounter
CPT/HCPCS: 36415; 70450; 71045; 71260; 72125; 74177; 80053; 80305-QW; 80307; 81003; 83690; 83735; 84484; 85025; 93005; 93010; 96361; 96374; 99284; 99285-25; J2060; J7030; Q9967